=== PATIENT | male | born 1975 | race Caucasian/White ===

== ENCOUNTER 2025-05-12 17:56 | Inpatient (IN) | payer OTHER, SELFPAY ==
[2025-05-12] VITALS (11 sets, daily range): BP systolic 122–172; BP diastolic 84–133; BMI 25.5
--- NOTE | 2025-05-12 14:59 | ED.GENMED ---
History of Present Illness
General
Chief Complaint: Withdrawal Symptoms
Time Seen by Provider: 05/12/25 14:56
History of Present Illness
History of Present Illness:
FOCUSED PAST MEDICAL HISTORY
- Alcoholism
REVIEW OF OLD RECORDS
- I reviewed the discharge summary from October 2020 and at that time he was admitted overnight due to alcohol withdrawal symptoms but signed out the following day AGAINST MEDICAL ADVICE
Note:
CHIEF COMPLAINT(S)
Alcohol withdrawal symptoms, including visual hallucinations and tremors.
HISTORY OF PRESENT ILLNESS
The patient is a 49-year-old male with a known history of alcohol use disorder. The patient last consumed alcohol at around 5-6 AM today and reported experiencing withdrawal symptoms, which he described as the most intense he has ever faced. The
patient mentions consuming alcohol non-stop for the past seven weeks, with minimal food intake, stating, 'literally no food, literally, literally maybe a couple of times I take like some BCAAs with water or some electrolytes.' He reported visual
hallucinations, describing seeing cartoon characters on the wall, but did not experience auditory hallucinations. The patient has experienced a seizure related to alcohol withdrawal in the past, specifically in February 2022. He reported nausea, dry
heaving, and a sensation of pins and needles all over his body. Additionally, the patient reported increased severity of tinnitus in his left ear. The patient was observed to be sweating profusely and experiencing anxiety.
PAST MEDICAL AND SURGICAL HISTORY
- History of alcohol use disorder
- Past alcohol withdrawal seizures
ADDITIONAL HISTORY OBTAINED FROM SOURCES OTHER THAN THE PATIENT
According to previous records, the patient was treated for alcohol use in 2020, where he signed out against medical advice the following day.
CHRONIC MEDICAL CONDITIONS SIGNIFICANTLY AFFECTING CARE
- Alcohol use disorder
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
The patient is experiencing significant stress related to alcohol use. He lives alone and has a high level of anxiety about his condition, impacting his ability to maintain sobriety.
REVIEW OF SYSTEMS
- Neurological: Reports visual hallucinations of seeing cartoon characters, described pins and needles sensation, and history of tinnitus worsened by alcohol.
- Psychiatric: Anxiety and past alcohol withdrawal seizure reported.
- Gastrointestinal: Nausea, inability to ingest food, and dry heaving.
PHYSICAL EXAM
General: Alert, some acute distress noted due to tremors and withdrawal symptoms. CIWA score 26
Skin: Patient currently is not diaphoretic but states that he was 'drenched in sweat earlier'
Head: Normocephalic, atraumatic, though patient describes fullness due to tinnitus.
Neck: Supple, trachea midline.
Eye Ears, nose, mouth and throat: Moist oral mucosa
Cardiovascular: Elevated heart rate noted, normal peripheral perfusion, no edema.
Respiratory: Respirations are non-labored.
Gastrointestinal : Abdomen nondistended
Back: Normal range of motion, normal alignment.
Musculoskeletal: Tremors noted in hands.
Neurological: Alert and oriented to person, though some difficulty with direct questioning; visual hallucinations reported; no focal neurological deficit observed.
Psychiatric: Cooperative but anxious, reported experiencing severe withdrawal symptoms.
PROBLEM LIST
Acute Problems:
- Alcohol withdrawal syndrome with visual hallucinations
- Tremors associated with alcohol withdrawal
- Nausea and dry heaving
- Elevated heart rate
Chronic Problems:
- Alcohol use disorder
PLAN
The patient will receive treatment with diazepam (Valium) to manage withdrawal symptoms due to the high Clinical [place] Withdrawal Assessment for Alcohol (CIWA) score of 26. Admission to the hospital is considered due to the severity of symptoms,
including hallucinations. Further evaluation and monitoring for potential complications like seizures are planned.
DIFFERENTIAL DIAGNOSIS
The Differential Diagnosis includes, in no particular order and is not limited to:
- Alcohol withdrawal delirium
- Delirium tremens
- Alcohol-related hallucinations
- Anxiety disorder due to alcohol withdrawal
- Seizure activity related to alcohol withdrawal
- Hyponatremia
- Electrolyte imbalances due to inadequate nutrition
- Hyperadrenergic state due to alcohol withdrawal
- Metabolic acidosis due to prolonged alcohol use
SUMMARY OF ENCOUNTER
The patient, a 49-year-old male with a history of alcohol use disorder, was seen in the emergency department due to severe alcohol withdrawal symptoms, including visual hallucinations, tremors, and nausea. 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 He has been on a weeks-long alcohol binge with minimal food intake. He also reported visual hallucinations characterized by seeing cartoon
characters. An assessment showed a high Clinical [place] Withdrawal Assessment for Alcohol (CIWA) score of 26. Despite treatment with benzodiazepines (diazepam specifically), the patient remained tachycardic and experienced persistent nausea. Due
to the severity of symptoms, including the risk of complications such as seizures, admission to the hospital for further management was decided.
DISPOSITION
Admit.
ASSESSMENT
The patient is experiencing acute alcohol withdrawal syndrome manifesting as severe hallucinations, tremors, and nausea, with significant risk for potential complications such as seizures.
EMERGENCY TREATMENTS ADMINISTERED
Diazepam (Valium) was administered to manage withdrawal symptoms.
PLAN
The patient will be admitted to the hospital for further monitoring and treatment of acute alcohol withdrawal syndrome. The plan includes continued administration of diazepam as needed, monitoring for any further complications, and ensuring optimal
supportive care during withdrawal.
MEDICATION RECONCILIATION
Diazepam was administered to manage symptoms of alcohol withdrawal syndrome.
MEDICAL DECISION MAKING
- Complexity of Data Reviewed: Chronic conditions affecting care include alcohol use disorder and past alcohol withdrawal seizures. Differential diagnoses include alcohol withdrawal delirium, delirium tremens, alcohol-related hallucinations, anxiety
disorder due to alcohol withdrawal, seizure activity related to alcohol withdrawal, hyponatremia, electrolyte imbalances due to inadequate nutrition, hyperadrenergic state due to alcohol withdrawal, and metabolic acidosis due to prolonged alcohol
use.
- Data:
Category 2
- Clinical information was obtained from an independent historian: Previous records indicated prior treatment for alcohol use disorder with the patient signing out against medical advice the next day.
-Risk:
Prescription medication, specifically benzodiazepines, was employed to manage the patients withdrawal symptoms. Hospital admission was deemed necessary due to the complexity and potential risks associated with acute alcohol withdrawal.
DIAGNOSIS
Alcohol withdrawal syndrome with hallucinations (ICD-10: F10.232).
Severe alcohol use disorder (ICD-10: F10.20).
EKG
- Sinus 100, left axis deviation, incomplete right bundle branch block
LABS
- CBC unremarkable, of note MCV 89, sodium 134, bicarb 19, total bili 1.6, alcohol 210
Past History
Past History
ED Past Medical History: Psychiatric (chronic alcoholism), Other (Anal fistula) and Other (insomnia)
Social History
Tobacco: Non-smoker
Alcohol: Chronic alcoholic
Personal: Single
Phy Exam
Physical Exam
Physical Exam:
See HPI
Course
Orders/Labs/Results
Orders:
Orders
05/12/25 14:25
Electrocardiogram (*1) Urgent
Reason for Study: Palpitations
EKG- Treatment ONCE
05/12/25 14:47
Alcohol Urgent
Complete Blood Count/With Diff Urgent
Comprehensive Metabolic Panel Urgent
Lipase Urgent
Comment: ADD ON
05/12/25 15:00
0.9% Sodium Chloride 1000 ml [Nss] 1,000 ml IV BOLUS
diazePAM [Valium Injection] 10 mg IV NOW STA
05/12/25 15:01
Add On- LAB Urgent
Tests Added?: lipase
05/12/25 15:06
Ondansetron Injectable [Zofran] 4 mg .ROUTE .STK-MED ONE
05/12/25 15:11
Ondansetron Injectable [Zofran] 4 mg IV NOW STA
05/12/25 16:13
Ondansetron Injectable [Zofran] 4 mg IV NOW STA
05/12/25 17:12
Admit/Transfer Patient As Directed
Co-Sign Provider:
Level of Care: Inpatient admission
Assign to:: ICU
Physician / Group: Abran Blair
Diagnosis: alcohol withdrawal
Reason for Hospitalization: alcohol withdrawal
Expected length of stay greater than two midnights?: Yes
ELOS- Estimated Length of Stay in days: 3
I certify the patient meets the requirements for IP care: Yes
05/12/25 17:13
PRN Pain Medication Management As Directed
May give lesser potent ordered pain med per pt: Yes
preference::
Protocol:: Medication orders for pain may be administered in a
manner that supports deferring to patient preference
when the pt is:
- Requesting an ordered lesser potent pain medication.
Least to most potent pain medications are defined
as: acetaminophen < NSAID < tramadol < opioids
(morphine, oxycodone, hydromorphone).
- Requesting a lesser dose of the same medication IF
ORDERED.
- Requesting a less intrusive route of administration
if both routes are prescribed by the provider (PO <
IV).
05/12/25 17:42
ECG [Electrocardiogram (*1)] Stat
Reason for Study: Abdominal Pain
Other Reason for Exam: evaluate qtc
05/12/25 17:50
Code Status As Directed
Resuscitation Status: Full Code
Abnormal Lab Results
05/12/25
14:47
MCH 32.4 H pg
(27.0-31.0)
Monocytes % 10.4 H %
(1.7-9.3)
Sodium 134 L mmol/L
(135-145)
Carbon Dioxide 19 L mmol/L
(22-30)
BUN 8 L mg/dl
(9-20)
Glucose 112 H mg/dl
(70-99)
Total Bilirubin 1.6 H mg/dl
(0.2-1.3)
Total Protein 8.9 H g/dl
(6.3-8.2)
Albumin 5.4 H g/dl
(3.5-5.0)
05/12/25 14:47
05/12/25 14:47
Vital Signs
Initial and Last Documented VS:
Initial Vital Signs
Temp Pulse Resp BP Pulse Ox
37.2 C 117 22 172/133 96
05/12/25 14:22 05/12/25 14:22 05/12/25 14:22 05/12/25 14:22 05/12/25 14:22
Last Documented Vital Signs
Temp Pulse Resp BP Pulse Ox
37.2 C 89 22 148/96 96
05/12/25 14:22 05/12/25 17:00 05/12/25 14:22 05/12/25 17:00 05/12/25 17:00
*Pulse Oximetry
SaO2: 96
Patient hypoxic: no
*Critical Care Note
Total Time (30-74mins, 75-104mins- exclusive of procedures): Not Applicable
ED Attending Note
-
Portions of this chart may have been created with voice recognition software.� Occasional wrong word or��sound alike� substitutions may have occurred due to the inherent limitations of voice recognition software.
Discharge Plan
Departure
Patient Disposition: Admit
Date of Disposition: 05/12/25
Time of Disposition: 16:13
Presentation/result/management discussed w/ accepting MD/DO: Hospitalist
Discharge Problem:
Alcohol withdrawal delirium
Interventions
Interventions:
*Risk Screen - Suicide Last Done: 05/12/25 14:24
*General Assessment Last Done: 05/12/25 14:50
*Neglect/Abuse Screening Last Done: 05/12/25 14:24
*ED COVID-19 Vaccine History Last Done: 05/12/25 14:50
ED- Neurological Assessment Last Done: 05/12/25 14:50
ED-Psychological Assessment Last Done: 05/12/25 14:50
[2025-05-12 15:10] LABS: Hematocrit 46.0 % (39.0-52.0); Hemoglobin 16.7 g/dL (13.0-18.0); Mean Corp Hgb Conc. 36.3 g/dL (33.0-37.0); Mean Corpuscular Volume 89.3 fL (80.0-94.0); Nucleated Red Blood Cells % 0 % (-); Platelet Count 200 10^3/uL (130-400); Red Cell Dist. Width 12.7 % (11.5-14.5)
[2025-05-12] MEDS: NSS 1000 IV ×2 (15:10→20:44)
[2025-05-12] MEDS: VALIUM INJECTION 10 MG IV ×2 (15:10→18:59)
[2025-05-12] MEDS: ZOFRAN 4 MG IV ×2 (15:11→16:39)
[2025-05-12 15:12] LABS: ALT (SGPT) 48 U/L (0-50); AST (SGOT) 55 U/L (17-59); Albumin 5.4 g/dl (3.5-5.0); Alkaline Phosphatase 62 U/L (38-126); Blood Urea Nitrogen 8 mg/dl (9-20); Calcium 9.4 mg/dl (8.4-10.2); Carbon Dioxide 19 mmol/L (22-30); Chloride 100 mmol/L (98-107); Glucose 112 mg/dl (70-99); Potassium 4.8 mmol/L (3.5-5.1); Sodium 134 mmol/L (135-145); Total Protein 8.9 g/dl (6.3-8.2); eGFR > 60.00
[2025-05-12 16:00] LABS: Lipase 269 U/L (23-300)
--- NOTE | 2025-05-12 18:02 | W.PN.UPDATE ---
Update Note
Progress Note Update
49 male history of insomnia alcohol use disorder with relapsing-remitting alcoholism and known history of alcohol withdrawal seizures presents after 7 weeks of consistently drinking alcohol. States drinks to blackout as he has a history of insomnia
and since he was a child has not been able to sleep. His last drink was last night which was a beer and Omar wine. He blacked out around 8-9 PM. Woke up this morning with extreme nausea abdominal pain tremors. Had some beer which did not help
him and made him vomit even more.
On my exam he is tachycardic diaphoretic actively hallucinating. States he cannot stare at black screens or areas of darkness as he can see things. Things he can see or cartoon characters on the wall. At this time he is not agitated. He has not
been eating anything for the last 7 weeks and has only been drinking. Therefore at this time we will admit to ICU for severe alcohol use disorder with alcohol withdrawal and concern for delirium tremens.
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
MSAS
Phenobarb taper
Thiamine
Folate
Dextrose containing fluids
Maalox
PPI IV
Antiemetics
EKG for QTc
Metabolic acidosis -anion gap(15)/osmolar gap high (323-334)
Likely related to ethanol toxicity though without evidence of ketosis.
Provide IV fluids
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
Hyperbilirubinemia mild
Check direct
Fortunately AST/ALT ALP within normal limit
--- NOTE | 2025-05-12 18:04 | HPS.HSE ---
Addendum entered and electronically signed by Abran Blair MD 05/13/25 10:11:
see update note
Original Note:
Family Physician
-
Family Physician: * NONE
Chief Complaint
-
alcohol withdrawal
History of Present Illness
49yoM PMH AUD relapsing/remitting every couple years presenting from acute relapse 7 weeks of alcohol use after 2 years of sobriety with withdraw:tremors, visual hallucinations, abdominal pain, emesis.
Last drink was last night when he tried to self wean off alcohol when he began having visual hallucinations, he describes as seeing a movie screen on the wall in front of him. Pt reports staying up all night, beginning to have 'the shakes' in the
morning when he tried to drink some beer and began uncontrollably vomiting. He has self weaned off alcohol in the past. He reports feeling worse this time with no hallucinations before. After his last withdrawal with a seizure, he went to rehab in
[place] where he also spends time living.
Pt describes his usual state of health between relapses with no pertinent PMH. He does not take any medications at home beyond a multivitamin when he is not consuming alcohol. Recently quit his job during this episode. Reached out to family for
support.
Pt is urinating appropriately with diarrhea for the last few weeks. He explains that he has had no real food and has had persistent diarrhea for weeks. Reports stomach pain, severe tinnitis elevated from baseline, and continued hallucination while
in the room.
Medical History
Past Medical History
Past Medical History: Reports Psychiatric (AUD) and Other (anal fissure, tinnitus at baseline)
Past Surgical History: Reports Orthopedic (shoulder surgery in [facility])
Social History
Tobacco: Non-smoker
Alcohol: Chronic Alcoholic
Drug: None
Living: Alone
Family History
Family History: Not pertinent
Allergies / Home Medications
Allergies reflects when Allergies were last updated in [employer].
Home Medications with original date entered in [employer]
Allergy/Medication List:
NKDA
Review of Systems
-
History Source: Patient
A 12 point ROS was completed and negative except as noted: Yes
Constitutional: Reports Fatigue, Sleep Disturbance and Night Sweats
EENT: Reports Tearing; Denies Sore Throat
Respiratory: Denies Cough or Trouble Breathing
Cardiac: Reports Diaphoresis and Palpitations; Denies Chest Pain
Abdomen/GI: Reports Abdominal Pain, Nausea, Vomiting, Diarrhea and Anorexia
: Denies Dysuria
Neurological: Reports Other (visual hallucinations, tremor)
Psych: Reports Anxiety and Audio or Visual Hallucinations
Physical Exam
Vital Signs
Vital Signs
Temp Pulse Resp BP Pulse Ox
98.9 F 89 22 148/96 96
05/12/25 14:22 05/12/25 17:00 05/12/25 14:22 05/12/25 17:00 05/12/25 17:00
Physical Exam
General: Well Developed, Well Nourished, No Apparent Distress, Comfortable and Conversant
HEENT: NormoCephalic, Anicteric, Moist mucous membranes, Atraumatic, Good Dentition, [place] Conjunctivae, Nose Appears Normal and Ears Appear Normal
Respiratory: Clear and Non Labored Respirations
Cardiac: S1/S2 and Regular Rhythm
GI: Soft, Non Distended and Tender (no guarding or rebound)
Genito-urinary: Deferred by me
Musculoskeletal: No Edema
Skin: Warm and Dry
Neuro: AO x 3, No Motor Deficits, Nonfocal/grossly intact and Tremors
Psych: Calm, Intact Judgment/Insight and Depressed
Laboratory Results
-
05/12/25 14:47
05/12/25 14:47
Laboratory Results
Total Bilirubin 1.6 mg/dl (0.2-1.3) H 05/12/25 14:47
AST 55 U/L (17-59) 05/12/25 14:47
ALT 48 U/L (0-50) 05/12/25 14:47
Alkaline Phosphatase 62 U/L (38-126) 05/12/25 14:47
Lipase 269 U/L (23-300) 05/12/25 14:47
Impression/Plan
-
IMPRESSION:
49yoM PMH AUD with relapse-remitting alcohol use and known alcohol withdrawal seizures presenting from 7 week binge drinking episode with withdrawal.
Pt reports last alcohol last night with attempt this morning with instant emesis, severe withdrawal. Pt hallucinating while in the room, otherwise calm, diaphoretic. Emesis last this morning, continued diarrhea. AFVSS. ECG normal QTc 460. K 4.8. Na
134. Co2 19.
PLAN:
#Alcohol withdrawal
- Admit to ICU. Severe withdrawal
- MSAS
- Phenobarb taper
- Thiamine, folate
- Dextrose containing fluids
- IV PPI
- Antiemetics.
<del>-</del> EKG to evaluate QTc
-Psych consult
#Metabolic acidosis
- IVF, monitor for acute changes
- Serum osm
#hyperbilirubinemia
- Monitor in setting of acute alcohol use
- Stable AST/ALT/ ALP
[2025-05-12] MEDS: PHENOBARBITAL 104 MG IV (20:36)
[2025-05-12] MEDS: PROTONIX IV 40 MG IV (20:43)
[2025-05-12] MEDS: NSS (PRESERVATIVE FREE) 10 ML IV (20:43)
[2025-05-12] MEDS: THIAMINE INJECTION 200 MG IV (20:44)
[2025-05-12 21:09] LABS: GGTP 45 U/L (15-73); Magnesium 1.9 mg/dl (1.6-2.3)
[2025-05-12 21:57] LABS: Glucose - Point of Care 107 mg/dl (70-99)
[2025-05-12] MEDS: VALIUM INJECTION 5 MG IV (22:06)
--- NOTE | 2025-05-12 22:13 | PTCARENOTE ---
Patient received from ED RN via stretcher. AAOx4 and able to make his needs known. Patient transferred from the stretcher to the bed by sliding over. Patient verbalizes dizziness with movement, especially when standing up. MARCO ANTONIO x4. MSAS of 6 on
arrival. Verbalizes that the television standstill image is moving side to side. Plan of care for the shift reviewed with the patient. Sinus rhythm on the monitor. Breath sounds are cta. Right AC 20 gauge is patent with no blood return. Assisted the
patient to sit at the side of the bed to urinate. Pt tolerated, but was unable to void. Scheduled medications administered. Pt vocalized concern regarding having tremors, and being unable to sleep fue to his withdrawal. Discussed protocol with the
patient. Valium administered for MSAS of 10.
[2025-05-12 23:35] LABS: Urine Character Clear (Clear)
[2025-05-12 23:47] LABS: APTT 24.1 Sec (23.4-35.0); INR 1.04; PT 13.9 Sec (11.4-14.6)
[2025-05-13] VITALS (20 sets, daily range): BP systolic 119–153; BP diastolic 77–95; BMI 25.7
[2025-05-13 00:01] LABS: Urine Red Blood Cell 0-2 /HPF (0-2); Urine Squamous Cell 0-2 /LPF (Few); Urine White Cell 0-2 /HPF (0-5)
--- NOTE | 2025-05-13 00:59 | PTCARENOTE ---
Patient reassessed. Awake and oriented x4. Verbalizes anxiousness but otherwise calm. Sinus rhythm on the monitor. Gracy giuliano and crackers provided. No changes from the previous assessment.
[2025-05-13 04:50] LABS: Blood Urea Nitrogen 10 mg/dl (9-20); Calcium 8.8 mg/dl (8.4-10.2); Carbon Dioxide 25 mmol/L (22-30); Chloride 104 mmol/L (98-107); Estimated Creatinine Clearance 118 ml/min; Glucose 85 mg/dl (70-99); Magnesium 2.1 mg/dl (1.6-2.3); Potassium 4.2 mmol/L (3.5-5.1); Sodium 136 mmol/L (135-145); eGFR > 60.00
--- NOTE | 2025-05-13 04:51 | PTCARENOTE ---
Patient reassessed. No changes from the previous assessment.
[2025-05-13 05:38] LABS: Hematocrit 42.9 % (39.0-52.0); Hemoglobin 15.3 g/dL (13.0-18.0); Mean Corp Hgb Conc. 35.7 g/dL (33.0-37.0); Mean Corpuscular Volume 92.3 fL (80.0-94.0); Platelet Count 138 10^3/uL (130-400); Red Cell Dist. Width 13.0 % (11.5-14.5)
--- NOTE | 2025-05-13 06:54 | W.PN.HOSP.TC ---
Addendum entered and electronically signed by Abran Blair MD 05/13/25 13:37:
49 male history of insomnia alcohol use disorder with relapsing-remitting alcoholism and known history of alcohol withdrawal seizures presents after 7 weeks of consistently drinking alcohol. States drinks to blackout as he has a history of insomnia
and since he was a child has not been able to sleep. His last drink was last night which was a beer and Omar wine. He blacked out around 8-9 PM. Woke up this morning with extreme nausea abdominal pain tremors. Had some beer which did not help
him and made him vomit even more.
On my exam he is tachycardic diaphoretic actively hallucinating. States he cannot stare at black screens or areas of darkness as he can see things. Things he can see or cartoon characters on the wall. At this time he is not agitated. He has not
been eating anything for the last 7 weeks and has only been drinking. Therefore at this time we will admit to ICU for severe alcohol use disorder with alcohol withdrawal and concern for delirium tremens.
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
MSAS
Phenobarb taper
Thiamine
Folate
Dextrose containing fluids
Maalox
PPI IV
Antiemetics
EKG for QTc
Metabolic acidosis -anion gap(15)/osmolar gap high (323-334)
Likely related to ethanol toxicity though without evidence of ketosis.
Provide IV fluids
Obtain serum osm though will not tire changer
Hyperbilirubinemia mild
Check direct
Fortunately AST/ALT ALP within normal limit
Downgrade to GMF
Original Note:
Today's Communication/Plan
-
Plan reviewed with attending.
visual hallucinations subsided. MSAS 1.
Downgrade.
Continue to monitor withdrawal symptoms.
Assessment / Plan
Assessment / Plan
IMPRESSION:
49yoM PMH AUD with relapse-remitting alcohol use and known alcohol withdrawal seizures presenting from 7 week binge drinking episode with withdrawal.
Pt reports last alcohol night of 05/11 presenting with severe withdrawal symptoms of hallucinations, tremors, emesis, diarrhea. Most of his symptoms have resolved with continued diarrhea. AFVSS. Electrolytes and LFTs WNL.
Pt reports having success outpt with naltrexone for alcohol cravings. He stopped the shots since they caused soreness. Seems interested in pursuing again out pt.
PLAN:
#Alcohol withdrawal
- Severe withdrawal subsided. Downgrade
- Continue MSAS protocol
- Continue Phenobarb taper
- Continue Thiamine, folate
- Continue Dextrose containing fluids. Encourage PO intake as long as he does not have nausea
- IV PPI
- Antiemetics.
<del>-</del> EKG stable
-Psych consult appreciated
#Metabolic acidosis
- IVF, monitor for acute changes
- Serum osm elevated. Acidosis resolved
#hyperbilirubinemia
- Monitor in setting of acute alcohol use. resolved
- Stable AST/ALT/ ALP
Anticipated Discharge: 24 - 48 hours
Subjective/Interval History
-
Date of Service: May 13, 2025
Today, pt reports feeling slightly better with diffuse weakness after getting some sleep. Pt reports resolved visual hallucinations and improving abdominal pain. He reports lower abdominal sharp pains intermittently with continued diarrhea. Denies
nausea or vomiting.
He had a presyncopal episode overnight where he stood up to use the restroom and got lightheaded. He reports instantly resolved symptoms. Denies lightheaded this morning.
Objective Data
-
Labs:
Laboratory Results
05/12/25 05/13/25
23: 04:00
WBC 4.5 L
Hgb 15.3
Hct 42.9
Plt Count 138 D
PT 13.9
INR 1.04
APTT 24.1
Sodium 136
Potassium 4.2
Chloride 104
Carbon Dioxide 25
BUN 10
Creatinine 0.9
Glucose 85
Calcium 8.8
Vital Signs:
Vital Signs
Temp Pulse Resp BP Pulse Ox
98.2 F 67 17 129/80 94
05/13/25 06:02 05/13/25 02:45 05/13/25 02:45 05/13/25 02:00 05/13/25 02:45
I&O
05/11/25 05/12/25 05/13/25
06:59 06:59 06:59
Intake Total 0 / 1859
Output Total 1045 / 1045
Balance 815 / 815
Physical Exam
-
General: Well Developed, Well Nourished, No Apparent Distress and Comfortable
HEENT: Normocephalic, Atraumatic, Moist Mucous Membranes and Anicteric
Respiratory: Clear to Auscultation, Wheezes and Non Labored Respirations
Cardiac: Regular Rhythm and S1/S2
GI: Soft, Nontender and Nondistended
Musculoskeletal: No Edema
Skin: Warm and Dry
Neuro: Awake, AO x 3, No Motor Deficits and Nonfocal/Grossly Intact; Negative Slurred Speech
Psych: Calm
--- NOTE | 2025-05-13 08:25 | CON.INTV ---
Consultation
Consultation Request
Date/Time Consultation Requested: 05/12/25, 18:04
Date/Time Consultation Performed: 05/13/25, 8:30am
Medical History
-
Chief Complaint: alcohol withdrawal delirium
History of Present Illness:
Patient is a 49yo M with a pmh notable for relapsing/remitting AUD who presented on 05/12 following acute relapse s/p 2 yrs sobriety, experiencing sx of withdrawal.
Pt had been sober for 2 yrs until recent 7-week relapse of alcohol use (says 'drinking all day every day', mostly beers/anoop; unable to quantify amount). Night prior to admission, pt tried to stop drinking (last drink was a beer and Omar wine
around 5pm 05/11). On 05/12, began having visual hallucinations, tremors, abdominal pain. Episodes of emesis after attempting to drink a beer to calm sx. Has hx of seizure following prior withdrawal episodes. Also describes multiple weeks of
persistent diarrhea with poor PO intake. Endorses stomach pain, tinnitus (mild at baseline). Without additional medical hx, no home meds aside from multivitamin.
On presentation: CIWA score 26 in the ED. BP 172/133. Afebrile. HR 117. RR 22. ECG normal QTc 460. K 4.8. Na 134. Co2 19. BAL 210. Patient was admitted to ICU, started on phenobarb taper, diazepam/lorazepam per MSAS protocol, folate, thiamine.
This am, still endorsing visual hallucinations (crowd of people in TV screen reflection, warped texture on wall). Says he feels he could try eating something light. Denies outright nausea but 'could throw up.' Says he had a BM last night that was
uncomfortable, constipation that turned into diarrhea. Would like to go to a rehab facility prior to going home.
Past Medical History
Past Medical History: Other (AUD w prior relapses involving seizures )
Past Surgical History: None
Social History
Alcohol: Other (AUD)
Drug: Marijuana
Living: Alone
Employment: Not Employed
Family History
Family History: Reviewed & Not Pertinent
Allergies / Home Medications
Allergies
Allergy/AdvReac Type Severity Reaction Status Date / Time
No Known Allergies Allergy Verified 11/03/20 12:22
Home Medications
�Medication �Instructions �Recorded �Confirmed �Last Taken �Type
No Meds [No Current Medications] 05/12/25 05/12/25 Unknown History
Review of Systems
-
History Source: Patient
All other systems: Unreviewed (per HPI)
Vitals / Labs / Diagnostic Testing
Vital Signs
Temp Pulse Resp BP Pulse Ox
98.2 F 67 17 129/80 94
05/13/25 07:27 05/13/25 02:45 05/13/25 02:45 05/13/25 02:00 05/13/25 02:45
Lab Data
05/13/25 04:00
05/13/25 04:00
Laboratory Results
05/12/25
23:21
PT 13.9
INR 1.04
APTT 24.1
Diagnostic Testing:
Physical Exam
-
HEENT: Normocephalic and Anicteric
Cardiovascular: S1/S2 and Regular Rhythm
Respiratory: Non-Labored Respirations
Neurology: Awake, Alert, Oriented and Other (no tremors on upper extremities )
Skin: Warm, Dry and Good Color
General: Comfortable and Other (appears calm, comfortable )
Assessment
-
Patient is a 49yo M with a pmh notable for relapsing/remitting AUD who presented on 05/12 following acute relapse s/p 2 yrs sobriety, experiencing sx of withdrawal.
#Alcohol withdrawal
#C/f delirium tremens
#Metabolic acidosis
Pt with K, Mg, P wnl but with shaking, active visual hallucinations, emesis, poor PO intake (hypovolemia), metabolic acidosis, hx of seizures from withdrawal. S/p 7 week alcohol binge. Blood alcohol level 210 on admission.
This am, AVSS. Glucose 107. Endorses ongoing visual hallucinations (warped texture of wall, seeing group of people in TV reflection). However, calm, no shakiness or palpitations. Moderate appetite. S/p 25mg diazepam on 05/12 & phenobarb. QTc 439 ms.
Per RN, MSAS 0-2 this am. No seizures overnight.
- Discotinue MSAS protocol
- Continue phenobarb taper
- Add 10mg diazepam q4h PRN for breakthrough sx
- Continue thiamine & folate repletion
- IVF NSS - finish 6pm today
- PRN zofran
- Monitor CMP
- Psych consulted, appreciate recs - pt wants rehab
#Global
- Diet: regular, as tolerated
- GI ppx: stop PPI today
- DVT ppx: lovenox
- Code: full
- Dispo: downgrade today, likely to floors
Data Reviewed
-
EKG: Report reviewed by me
Labs: Labs reviewed by me
Critical Care Time (in minutes): 35
Total Time Spent with Patient (in minutes): 15
[2025-05-13] MEDS: FOLVITE 1 MG PO (08:44)
[2025-05-13] MEDS: PROTONIX IV 40 MG IV (08:44)
[2025-05-13] MEDS: NSS 1000 IV (08:44)
[2025-05-13] MEDS: NSS (PRESERVATIVE FREE) 10 ML IV (08:44)
[2025-05-13] MEDS: THIAMINE INJECTION 200 MG IV ×2 (08:45→20:26)
[2025-05-13] MEDS: PHENOBARBITAL 97.5 MG IV ×3 (08:45→21:42)
--- NOTE | 2025-05-13 09:00 | PTCARENOTE ---
Rec'd pt at 0730 awake alert and oriented resting in bed. States he feels much better. States now that it is daylight the hallucinations of the TV screen and things moving are gone. Denies dizziness or headache. No tremors or seizure activity noted.
BERNARD. Speech is clear and conversation is appropriate. MSAS is currently a 0. Admits to some intermittent lower abd sharp discomfort that he mostly noted with urinating although has been able to urinate. Skin is pink wm and dry. Respirs are
unlabored on RA with sats of 97%. BS are clear. Monitor SR with BB config. + pulses. No edema. Abd is soft- non-tender to palp with + BS. Denies nausea but states he has not had much of an appetite but thinks he could try to eat something this
morning. Did feel like he has to move his bowels and admits to some diarrhea at home. Voiding tea colored urine. Assisted oob to the toilet for per pt liquid brown stool x2 times. Gait intially unsteady when he first stool up but corrected quickly
and gait after was steady with no dizziness. Stood at the sink and did oral care and own CHG bath. IV NSS infusing at 100 ml/hr via R hand IV site. Capped int intact RAC. Plan of care reviewed with pt and call leggett in reach. Pt made aware that he
need to ring if he wants to get up- verbalized understanding.
--- NOTE | 2025-05-13 10:10 | PTCARENOTE ---
Pt at some toast and 1/2 fruit cup for breakfast but then stated his stomach felt queezy after. No vomiting. No hallucinations and no tremors currently. Psych in to see pt currently.
--- NOTE | 2025-05-13 12:30 | PTCARENOTE ---
Assessment is unchanged. ANNETTE is a 1. Pts mother in visiting. No complaints currently. Voided 400 mls in the urinal and urine was a much home health provider tea colored. States he felt better after having a more substantial void. Call leggett in reach.
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
--- NOTE | 2025-05-13 14:15 | PTCARENOTE ---
Tolerated broth and crackers with no c/o nausea. Pt did relate that he had a brief episode of shaking and anxiousness when he opened up a can of gingerale- said the sound reminded him of opening a beer can and briefly made him anxious but states -
he worked through it and is ok now. He did not ring his call leggett at the time and states he is comfortable now. No tremors noted and MSAS is a 1.
--- NOTE | 2025-05-13 14:23 | CM ---
Addendum entered by Zofia Morris 05/13/25 15:51:
Yomaira at [facility] notified. She will try to visit this evening.
Original Note:
Initial assessment completed with mother. Patient lives alone in a 3rd floor apartment with no elevator (since November), 1 step to enter. 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 Went to [employer] in [place]. No DME. No in-home services. He has had in-patient [facility] rehab in [place] and [facility]. No PCP. Discharge POC: Anticipate home with no needs unless [facility] can have patient agree to inpatient SA rehab.
--- NOTE | 2025-05-13 16:00 | PTCARENOTE ---
Pt had been dozing- once awake he did admit that looking at the brick wall outside his room window he sees the bricks moving along with the print design on the sofa in the room. States he knows they are not but that is what he is seeing. Does not
see any additional figures in his room or in the TV which is off like last night. MSAS is a 2. Phenobarb given as ordered. Pt for transfer to 322. No other changes.
[2025-05-13] MEDS: FLUSH (NSS) 1 FLUSH IV (16:15)
--- NOTE | 2025-05-13 17:00 | PTCARENOTE ---
Report called to [facility] and pt transferred via wheelchair up to new room. Cooperative. Gait steady getting oob. Denies dizziness. No tremors noted. Prior to transfer IV fluids capped per MD order. No other changes.
[2025-05-13] MEDS: NSS IV (17:30)
--- NOTE | 2025-05-13 17:30 | PTCARENOTE ---
Pt received from ICU via wheelchair accompanied by ICU Nurse. Pt ambulated from wheelchair to recliner with steady gait. Pt introduced to staff, call light and environment. Chair alarmed and audible. All personal items and call light within
reach.
[2025-05-13] MEDS: LOVENOX 40 MG SC (17:50)
[2025-05-13] MEDS: ATARAX 50 MG PO (21:41)
[2025-05-14 04:40] VITALS: BP 118/73
--- NOTE | 2025-05-14 07:13 | W.PN.HOSP.TC ---
Addendum entered and electronically signed by Abran Blair MD 05/14/25 13:26:
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
MSAS
Phenobarb taper
Thiamine
Folate
Dextrose containing fluids
Maalox
PPI IV
Antiemetics
Metabolic acidosis -anion gap(15)/osmolar gap high (323-334)
Likely related to ethanol toxicity though without evidence of ketosis.
Provide IV fluids
Obtain serum osm though will not climate change risk assessor
Original Note:
Today's Communication/Plan
-
Plan reviewed with attending.
Continue MSAS protocol. Phenobarb taper, thiamine, folate.
Appreciate psychiatry recommendations. Plan to start naltrexone before discharge.
Assessment / Plan
Assessment / Plan
IMPRESSION:
49yoM PMH AUD with relapse-remitting alcohol use and known alcohol withdrawal seizures presenting from 7 week binge drinking episode with withdrawal.
Pt reports last alcohol night of 05/11 presenting with severe withdrawal symptoms of hallucinations, tremors, emesis, diarrhea. Most of his symptoms have resolved with continued diarrhea. AFVSS. Electrolytes and LFTs WNL.
Pt reports having success outpt with naltrexone for alcohol cravings. He stopped the shots since they caused soreness. Seems interested in pursuing again out pt.
Today, pt is reporting profuse sweating but resolution of hallucinations, vomiting, and diarrhea. telegraph office manager has been in contact with rehab facilities. Psych recommends considering starting naltrexone before discharge.
PLAN:
#Alcohol withdrawal
- Severe withdrawal subsided. Downgraded.
- Continue MSAS protocol
- Continue Phenobarb taper
- Continue Thiamine, folate
- Continue encouraging PO intake as long as he does not have nausea
- IV PPI
- Antiemetics.
<del>-</del> EKG stable
-Psych consult appreciated
#Metabolic acidosis
- IVF, monitor for acute changes
- Serum osm elevated. Acidosis resolved
#hyperbilirubinemia
- Monitor in setting of acute alcohol use. resolved
- Stable AST/ALT/ ALP
#moderate protein calorie malnutrition
- Weight loss during last 7 weeks of binge drinking. Nutrition per RD appreciated.
DVT prophylaxis: lovenox
Diet: normal
Dispotion: rehab
Anticipated Discharge: Within 24 hours
Subjective/Interval History
-
Date of Service: May 14, 2025
Today, pt reports profuse sweating and chills. Scoring 2 or lower on MSAS. Pt had second bout of lightheadedness walking to the restroom yesterday with resolution after drinking some water and sleeping. Denies visual hallucinations, nausea,
vomiting, blurry vision, headaches. He reports continued stomach cramping feeling.
He stated he talked to rehab facility already and has had family visiting. He expressed interest in restarting naltrexone.
Objective Data
-
Labs:
Laboratory Results
05/14/25
06:33
WBC 2.9 L
Hgb 14.4
Hct 41.1
Plt Count 100 L D
Sodium 139
Potassium 3.8
Chloride 103
Carbon Dioxide 29
BUN 8 L
Creatinine 0.9
Glucose 100 H
Calcium 9.5
Total Bilirubin 1.5 H
AST 70 H
ALT 67 H
Alkaline Phosphatase 46
Vital Signs:
Vital Signs
Temp Pulse Resp BP Pulse Ox
97.8 F 80 18 138/97 100
05/14/25 07:30 05/14/25 07:30 05/14/25 07:30 05/14/25 07:30 05/14/25 07:30
I&O
05/13/25 05/14/25 05/15/25
06:59 06:59 06:59
Intake Total 1859 / 1959 3659 / 3660
Output Total 1045 / 1045 2375 / 2375
Balance 815 / 915 1285 / 1285
Physical Exam
-
General: Well Developed, Well Nourished, No Apparent Distress, Comfortable and Sweats
HEENT: Normocephalic, Atraumatic, Moist Mucous Membranes and Anicteric
Respiratory: Clear to Auscultation and Non Labored Respirations
Cardiac: Regular Rhythm and S1/S2
GI: Soft, Nontender and Nondistended
Musculoskeletal: No Edema
Skin: Warm; Negative Dry (diaphoretic)
Neuro: AO x 3, No Motor Deficits and Nonfocal/Grossly Intact
Psych: Calm
[2025-05-14 07:27] LABS: ALT (SGPT) 67 U/L (0-50); AST (SGOT) 70 U/L (17-59); Albumin 4.2 g/dl (3.5-5.0); Alkaline Phosphatase 46 U/L (38-126); Blood Urea Nitrogen 8 mg/dl (9-20); Calcium 9.5 mg/dl (8.4-10.2); Carbon Dioxide 29 mmol/L (22-30); Chloride 103 mmol/L (98-107); Estimated Creatinine Clearance 118 ml/min; Glucose 100 mg/dl (70-99); Potassium 3.8 mmol/L (3.5-5.1); Sodium 139 mmol/L (135-145); Total Protein 7.2 g/dl (6.3-8.2); eGFR > 60.00
[2025-05-14 07:30] VITALS: BP 138/97
[2025-05-14 07:34] LABS: Hematocrit 41.1 % (39.0-52.0); Hemoglobin 14.4 g/dL (13.0-18.0); Mean Corp Hgb Conc. 35.0 g/dL (33.0-37.0); Mean Corpuscular Volume 94.7 fL (80.0-94.0); Platelet Count 100 10^3/uL (130-400); Red Cell Dist. Width 12.8 % (11.5-14.5)
[2025-05-14] MEDS: PHENOBARBITAL 97.5 MG IV ×3 (07:45→21:02)
[2025-05-14] MEDS: FOLVITE 1 MG PO (07:45)
[2025-05-14] MEDS: THIAMINE INJECTION 200 MG IV ×2 (07:46→19:48)
--- NOTE | 2025-05-14 09:40 | CM ---
[facility] and he will be in to se patient today. Patient last night, was agreeable to inpatient at [facility] once he is completed detox. Gerard will follow up with CM today re
anticipated d/c date.
--- NOTE | 2025-05-14 10:42 | PN.CDI ---
CDI
- -
CDI:
Physician Documentation Request
Admit Date: 05/12/25 17:56
Dear Doctor Cresencio,
Clinical Indicators:
Patient admitted with alcohol withdrawal.
05/12 H & P, ' He explains that he has had no real food and has had persistent diarrhea for weeks.'
05/13 note/assessment:-'Compared to reported UBW of 218 lbs pt with a 19 lb (8%) weight loss in two months,
significant.'
-'With weight loss of > 7.5% in 3 months and < 75% estimated needs > 1 month pt
meets AND/ASPEN criteria for moderate protein calorie malnutrition of chronic
illness.'
Based on the above information and your assessment, which of the following most accurately represents the patient's nutritional status?
Moderate Protein Calorie Malnutrition
Other (please specify)
Stambaugh Criteria ([facility] Hospitalist 2017)
2 or more criteria must be present for either
non severe or severe malnutrition
Note that the criteria differs related to the
presence of an acute or chronic illness
Chronic Illness
Energy Intake Non Severe: <75% for >1 month
Severe: <75% for >1 month
Weight Loss Non Severe: 5% over 1 month
7.5% over 3 months
10% over 6 months
20% over 1 year
Severe: >5% over 1 month
>7.5% over 3 months
>10% over 6 months
>20% over 1 year
Body Fat Non Severe: Mild Loss
Severe: Severe Loss
Muscle Mass Non Severe: Mild Loss
Severe: Severe Loss
Fluid Accumulation Non Severe: Mild Accumulation
Severe: Moderate to severe
accumulation
Reduced Batch And Furnace Manager Strength Non Severe: N/A
Severe: Measurably reduced
Additional criteria that can be used to Determine if Mild or Moderate Malnutrition (Merck Manual 2018)
Mild Moderate Severe
Albumin gm/dl <3.0 gm/dl <2.5 gm/dl <2.0 gm/dl
Pre Albumin mg/dl <15 gm/dl <10 mg/dl <5.0 mg/dl
BMI <18.5 <17 <16
Use of terms such as suspected, likely, concern for, or probable (associated with a specific diagnosis that is being evaluated, monitored, or treated as if it exists) are acceptable and can be coded in the inpatient setting, when documented at the
time of discharge.
Thank you,
Praveena Saenz RN
CDI Specialist
available via tiger text
Please use your independent medical judgment in providing your response.
[2025-05-14 11:15] VITALS: BP 150/91
[2025-05-14 16:00] VITALS: BP 131/81
--- NOTE | 2025-05-14 17:22 | W.PN.UPDATE ---
Update Note
Progress Note Update
pt seen for followup. says he is toughing it out, 'this isn't my first rodeo' looking forward to going to rehab after this, though does not feel well enough yet. had good conversation with [facility] folks, feels it is going to work out. hoping to go to
sober living facility afterwards. continue detox here, plan to go to rehab
[2025-05-14] MEDS: LOVENOX 40 MG SC (17:29)
[2025-05-14] MEDS: ATARAX 50 MG PO (21:02)
[2025-05-14 23:00] VITALS: BP 146/98
[2025-05-15 07:00] VITALS: BP 133/89
[2025-05-15 07:17] LABS: Hematocrit 41.9 % (39.0-52.0); Hemoglobin 14.6 g/dL (13.0-18.0); Mean Corp Hgb Conc. 34.8 g/dL (33.0-37.0); Mean Corpuscular Volume 93.3 fL (80.0-94.0); Platelet Count 111 10^3/uL (130-400); Red Cell Dist. Width 12.7 % (11.5-14.5)
--- NOTE | 2025-05-15 07:18 | W.PN.HOSP.TC ---
Addendum entered and electronically signed by Abran Blair MD 05/15/25 13:42:
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
MSAS
Phenobarb taper
Thiamine
Folate
Dextrose containing fluids
Maalox
PPI IV transition to oral
Antiemetics
Interested in [facility] inpatient, has question for liaison, awaiting to hear back
May need to complete phenobarb taper here
Original Note:
Today's Communication/Plan
-
Plan reviewed with attending
Inpt rehab per CM.
Continue phenobarbital taper
Begin naltrexone
Assessment / Plan
Assessment / Plan
IMPRESSION:
49yoM PMH AUD with relapse-remitting alcohol use and known alcohol withdrawal seizures presenting from 7 week binge drinking episode with withdrawal.
Pt reports last alcohol night of 05/11 presenting with severe withdrawal symptoms of hallucinations, tremors, emesis, diarrhea. Most of his symptoms have resolved with continued diarrhea. AFVSS. Electrolytes and LFTs WNL.
Pt reports having success outpt with naltrexone for alcohol cravings. He stopped the shots since they caused soreness. Seems interested in pursuing again out pt.
Today, pt is feeling better. records analysis manager has been in contact with rehab facilities. Pt prefers inpt rehab vs intensive outpt. Psych recommends considering starting naltrexone before discharge, pt amenable and appreciative. Pt did not realize
vivitrol came in a PO version and is eager to begin due to the success last time he used it.
Pt requested ENT consult for chronic tinnitus he has had for 2 years. We discussed the acuity of the problem will best be addressed outpt.
PLAN:
#Alcohol withdrawal
- Severe withdrawal subsided. Downgraded.
- Continue MSAS protocol
- Continue Phenobarb taper
- Continue Thiamine, folate
- Continue encouraging PO intake
- IV PPI
- Antiemetics.
<del>-</del> EKG stable
-Psych consult appreciated
- Start naltrexone today
#Metabolic acidosis
- IVF, monitor for acute changes
- Serum osm elevated. Acidosis resolved
#hyperbilirubinemia
- Monitor in setting of acute alcohol use. resolved
- Stable AST/ALT/ ALP
#moderate protein calorie malnutrition
- Weight loss during last 7 weeks of binge drinking. Nutrition per RD appreciated.
DVT prophylaxis: lovenox
Diet: normal
Dispotion: rehab
Anticipated Discharge: 24 - 48 hours
Subjective/Interval History
-
Date of Service: May 15, 2025
Pt denies pain, nausea, vomiting. With phenobarbital he reports mild sedation. He reports continued baseline tinnitus.
Objective Data
-
Labs:
Laboratory Results
05/15/25
06:30
WBC 3.1 L
Hgb 14.6
Hct 41.9
Plt Count 111 L
Sodium Pending
Potassium Pending
Chloride Pending
Carbon Dioxide Pending
BUN Pending
Creatinine Pending
Glucose Pending
Calcium Pending
Vital Signs:
Vital Signs
Temp Pulse Resp BP Pulse Ox
98.6 F 86 16 146/98 99
05/14/25 23:00 05/14/25 23:00 05/14/25 23:00 05/14/25 23:00 05/14/25 23:00
I&O
05/14/25 05/15/25 05/16/25
06:59 06:59 06:59
Intake Total 3660 / 3660 1919
Output Total 2375 / 2375
Balance 1285 / 1285 1919
Physical Exam
-
General: Well Developed, Well Nourished, No Apparent Distress and Comfortable
HEENT: Normocephalic, Atraumatic and Moist Mucous Membranes
Respiratory: Clear to Auscultation
Cardiac: Regular Rhythm and S1/S2
GI: Soft and Nontender
Musculoskeletal: No Edema
Skin: Warm and Dry
Neuro: AO x 3, No Motor Deficits and Nonfocal/Grossly Intact
Psych: Calm
[2025-05-15 07:28] LABS: Blood Urea Nitrogen 9 mg/dl (9-20); Calcium 9.2 mg/dl (8.4-10.2); Carbon Dioxide 27 mmol/L (22-30); Chloride 103 mmol/L (98-107); Estimated Creatinine Clearance > 125 ml/min; Glucose 64 mg/dl (70-99); Potassium 3.9 mmol/L (3.5-5.1); Sodium 138 mmol/L (135-145); eGFR > 60.00
[2025-05-15] MEDS: FOLVITE 1 MG PO (08:00)
[2025-05-15] MEDS: THIAMINE INJECTION 200 MG IV (08:00)
[2025-05-15] MEDS: LUMINAL 64.8 MG PO ×3 (08:05→21:29)
--- NOTE | 2025-05-15 08:14 | CM ---
Addendum entered by Aleida Mccallum 05/15/25 13:36:
spoke with Gerard from [facility] who came to see the patient today - he stated that [facility] will not take patient on phenobarbitol taper. tt hospitalist
Gerard request CM fax face sheet & clinicals to [facility] [phone] - CM faxed
Gerard also stated he would obtain authorization
PLAN: [facility] Inpatient when stable
Original Note:
late note
Madalyn from [facility] left voice mail stating that the patient is agreeable to etoh inpatient at [facility] once he is completed detox and medically cleared.
left message for Madalyn [phone] at [facility].
PLAN: Inpatient [facility] once medically stable, [facility] is following
[2025-05-15] MEDS: REVIA 50 MG PO (14:12)
[2025-05-15 15:00] VITALS: BP 136/92
--- NOTE | 2025-05-15 15:02 | W.PN.UPDATE ---
Update Note
Progress Note Update
pt seen for followup. states had felt great this morning, then got a pill that unsettled him. he thought it was naltrexone, but more likely was folic acid. able to eekp food down, waiting for next step after off phenobarb taper ([facility]
rehab.) Had thought he should go to his apt to clean it up before he went to rehab, embarrassed by state of apt, but aware he needs to go directly to [facility], agrees.
[2025-05-15] MEDS: LOVENOX 40 MG SC (17:18)
[2025-05-15] MEDS: ATARAX 50 MG PO (21:28)
[2025-05-15 23:32] VITALS: BP 150/90
[2025-05-16] MEDS: VALIUM INJECTION 10 MG IV (00:41)
[2025-05-16] MEDS: FLUSH (NSS) 2 FLUSH IV (00:42)
[2025-05-16 07:39] LABS: Hematocrit 42.7 % (39.0-52.0); Hemoglobin 14.7 g/dL (13.0-18.0); Mean Corp Hgb Conc. 34.4 g/dL (33.0-37.0); Mean Corpuscular Volume 93.6 fL (80.0-94.0); Platelet Count 116 10^3/uL (130-400); Red Cell Dist. Width 12.7 % (11.5-14.5)
[2025-05-16 08:22] LABS: Blood Urea Nitrogen 10 mg/dl (9-20); Calcium 9.1 mg/dl (8.4-10.2); Carbon Dioxide 27 mmol/L (22-30); Chloride 105 mmol/L (98-107); Estimated Creatinine Clearance > 125 ml/min; Glucose 91 mg/dl (70-99); Potassium 4.7 mmol/L (3.5-5.1); Sodium 139 mmol/L (135-145); eGFR > 60.00
[2025-05-16] MEDS: PROTONIX 40 MG PO (08:35)
[2025-05-16] MEDS: REVIA 50 MG PO (08:36)
[2025-05-16] MEDS: LUMINAL 64.8 MG PO ×3 (08:36→21:52)
[2025-05-16] MEDS: FOLVITE 1 MG PO (08:36)
[2025-05-16 08:38] VITALS: BP 132/86
--- NOTE | 2025-05-16 09:03 | W.PN.HOSP.TC ---
Addendum entered and electronically signed by Abran Blair MD 05/16/25 12:25:
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
MSAS
Phenobarb taper
Thiamine
Folate
Maalox
Oral PPI
Antiemetics
Complete phenobarb taper here and then DC to inpatient [facility]
Original Note:
Today's Communication/Plan
-
Plan reviewed with attending.
PRN benzos for acute worsening of tinnitus.
Continue phenobarbital
Assessment / Plan
Assessment / Plan
IMPRESSION:
49yoM PMH AUD with relapse-remitting alcohol use and known alcohol withdrawal seizures presenting from 7 week binge drinking episode with withdrawal.
Pt reports last alcohol night of 05/11 presenting with severe withdrawal symptoms of hallucinations, tremors, emesis, diarrhea. Most of his symptoms have resolved with continued diarrhea. AFVSS. Electrolytes and LFTs WNL.
Pt reports having success outpt with naltrexone for alcohol cravings. He stopped the shots since they caused soreness. Seems interested in pursuing again out pt.
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 Pt prefers inpt rehab vs intensive outpt. Psych recommends considering starting naltrexone before discharge, pt amenable and appreciative. Pt did not realize vivitrol came in a PO version and
is eager to begin due to the success last time he used it.
Pt reports acute worsening of chronic tinnitus.
Today, pt reports continued episodes of diaphoresis but improved nausea, vomiting, diarrhea. Started naltrexone yesterday. Continues with phenobarb taper dose 64.8mg.
Pt also reports acute worsening of chronic tinnitus. Discussed with ENT. ENT explained acute worsening of tinnitus with withdrawal can happen, PRN benzos. Plan for outpt f/u for audiogram cannot be done inpt.
PLAN:
#Alcohol withdrawal
- Severe withdrawal subsided. Downgraded.
- Continue MSAS protocol
- Continue Phenobarb taper
- Continue Thiamine, folate
- Continue encouraging PO intake
- PO PPI
- Antiemetics.
<del>-</del> EKG stable
-Psych consult appreciated. Recommended starting naltrexone 50mg PO daily while still inpatient.
- Start naltrexone yesterday
#Metabolic acidosis
- IVF, monitor for acute changes
- Serum osm elevated. Acidosis resolved
#hyperbilirubinemia
- Monitor in setting of acute alcohol use. resolved
- Stable AST/ALT/ ALP
#moderate protein calorie malnutrition
- Weight loss during last 7 weeks of binge drinking. Nutrition per RD appreciated.
#acute on chronic tinnitus
- discussed with ENT. PRN benzos.
DVT prophylaxis: lovenox
Diet: normal
Dispotion: [facility] sunday
Anticipated Discharge: 24 - 48 hours
Subjective/Interval History
-
Date of Service: May 16, 2025
Pt reports feeling well today except sedation with phenobarbital. He was awoken by a noise in the hallway around midnight and received PRN valium, otherwise no PRNs used. He reports he continues to have episodes of diaphoresis. Denies nausea,
vomting, diarrhea.
Pt reports worse tinnitus.
Objective Data
-
Labs:
Laboratory Results
05/16/25
07:08
WBC 3.7 L
Hgb 14.7
Hct 42.7
Plt Count 116 L
Sodium 139
Potassium 4.7
Chloride 105
Carbon Dioxide 27
BUN 10
Creatinine 0.8
Glucose 91
Calcium 9.1
Vital Signs:
Vital Signs
Temp Pulse Resp BP Pulse Ox
97.8 F 80 12 132/86 99
05/16/25 08:38 05/16/25 08:38 05/16/25 08:38 05/16/25 08:38 05/16/25 08:38
I&O
05/15/25 05/16/25 05/17/25
06:59 06:59 06:59
Intake Total 1919 / 3419
Balance 1919 / 3419
Physical Exam
-
General: Well Developed, Well Nourished, No Apparent Distress and Comfortable
HEENT: Normocephalic, Atraumatic and Moist Mucous Membranes
Respiratory: Clear to Auscultation and Non Labored Respirations
Cardiac: Regular Rhythm and S1/S2
GI: Soft and Nontender
Musculoskeletal: No Cyanosis and No Edema
Skin: Warm and Dry
Neuro: AO x 3, No Motor Deficits and Nonfocal/Grossly Intact
Psych: Calm
[2025-05-16 15:27] VITALS: BP 127/81
[2025-05-16] MEDS: LOVENOX 40 MG SC (18:19)
[2025-05-16] MEDS: ATARAX 50 MG PO (21:51)
[2025-05-16] MEDS: VALIUM 5 MG PO (22:03)
[2025-05-16 23:13] VITALS: BP 126/91
[2025-05-17 07:00] VITALS: BP 110/82
[2025-05-17] MEDS: PROTONIX 40 MG PO (08:17)
[2025-05-17] MEDS: FOLVITE 1 MG PO (08:17)
[2025-05-17] MEDS: LUMINAL 32.4 MG PO (08:17)
[2025-05-17] MEDS: REVIA 50 MG PO (08:20)
--- NOTE | 2025-05-17 09:07 | W.PN.HOSP.TC ---
Today's Communication/Plan
-
Plan reviewed with attending.
Assessment / Plan
Assessment / Plan
IMPRESSION:
49yoM PMH AUD with relapse-remitting alcohol use and known alcohol withdrawal seizures presenting from 7 week binge drinking episode with withdrawal.
Pt reports last alcohol night of 05/11 presenting with severe withdrawal symptoms of hallucinations, tremors, emesis, diarrhea. Most of his symptoms have resolved with continued diarrhea. AFVSS. Electrolytes and LFTs WNL.
Pt reports having success outpt with naltrexone for alcohol cravings. He stopped the shots since they caused soreness. Seems interested in pursuing again out pt.
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 Pt prefers inpt rehab vs intensive outpt. Psych recommends considering starting naltrexone before discharge, pt amenable and appreciative. Pt did not realize vivitrol came in a PO version and
is eager to begin due to the success last time he used it.
Pt reports acute worsening of chronic tinnitus.
Today, pt reports continued episodes of diaphoresis but improved nausea, vomiting, diarrhea. Started naltrexone yesterday. Continues with phenobarb taper dose 64.8mg.
Pt also reports acute worsening of chronic tinnitus. Discussed with ENT. ENT explained acute worsening of tinnitus with withdrawal can happen, PRN benzos. Plan for outpt f/u for audiogram cannot be done inpt.
PLAN:
#Alcohol withdrawal
- Severe withdrawal subsided. Downgraded.
- Continue MSAS protocol
- Continue Phenobarb taper. 6 doses of last taper.
- Continue Thiamine, folate
- Continue encouraging PO intake
- PO PPI
- Antiemetics.
<del>-</del> EKG stable
-Psych consult appreciated. Recommended starting naltrexone 50mg PO daily while still inpatient.
- Start naltrexone yesterday
#Metabolic acidosis
- IVF, monitor for acute changes
- Serum osm elevated. Acidosis resolved
#hyperbilirubinemia
- Monitor in setting of acute alcohol use. resolved
- Stable AST/ALT/ ALP
#moderate protein calorie malnutrition
- Weight loss during last 7 weeks of binge drinking. Nutrition per RD appreciated.
#acute on chronic tinnitus
- discussed with ENT. SILVINO estrella.
DVT prophylaxis: lovenox
Diet: normal
Dispotion: [facility] sunday
Anticipated Discharge: Within 24 hours
Subjective/Interval History
-
Date of Service: May 17, 2025
Pt reports feeling well. His tinnitis is improving each day.
Objective Data
-
Vital Signs:
Vital Signs
Temp Pulse Resp BP Pulse Ox
98.2 F 83 18 110/82 99
05/17/25 07:00 05/17/25 07:00 05/17/25 07:00 05/17/25 07:00 05/17/25 07:00
I&O
05/16/25 05/17/25 05/18/25
06:59 06:59 06:59
Intake Total 3420 / 3420 1200 / 1200
Balance 3420 / 3420 1200 / 1200
Physical Exam
-
General: Well Developed, Well Nourished and No Apparent Distress
HEENT: Normocephalic, Atraumatic, Moist Mucous Membranes and Anicteric
Respiratory: Clear to Auscultation and Non Labored Respirations
Cardiac: Regular Rhythm and S1/S2
GI: Nondistended
Musculoskeletal: No Edema
Skin: Warm and Dry
Neuro: AO x 3, No Motor Deficits and Nonfocal/Grossly Intact
Psych: Calm
--- NOTE | 2025-05-17 12:09 | W.PN.UPDATE ---
Update Note
Progress Note Update
Patient seen by me on 05/17/2025 from 11:52am-12:09pm
Psychiatry follow up for severe alcohol use disorder. Patient states he is feeling well and eager for discharge. He states he does not want to take the inpatient treatment route, but rather IOP, meetings and his sponsor. He states his family is
local and supportive of this plan. He states he previously responded very well to Vivitrol and is interested in continuing PO naltrexone after discharge.
MSE- good eye contact. fluent spontaneous speech. calm and cooperative. logical and goal directed. denies SI/HI/AVH. no delusions. Fair I/J. fully oriented
A/P- 49 yo male with alcohol use disorder, now stable for discharge with plan for D&A IOP, meetings and support of sponsor/family. continue naltrexone 50mg daily.
--- NOTE | 2025-05-17 12:49 | W.DCSUMMARY ---
Discharge Summary
Discharge Data
Date of Admission: 05/12/25
Date of Discharge: 05/17/25
-
Pending Results: No
Hospital Course
49yoM PMH AUD relapsing/remitting course between sobriety and binging presenting from acute relapse 7 weeks of alcohol use after 2 years sober with withdraw:tremors, visual hallucinations, abdominal pain, emesis.
Pt describes his usual state of health between relapses with no pertinent PMH. He does not take any medications at home beyond a multivitamin when he is not consuming alcohol. Recently quit his job during this episode. Reached out to family for
support.
Pt is urinating appropriately with diarrhea for the last few weeks. He explains that he has had no real food and has had persistent diarrhea for weeks. Reports stomach pain, severe tinnitis elevated from baseline, and continued hallucination while
in the room.
Severe alcohol withdrawal protocol initiated. Started on phenobarb taper, PRN benzodiazepines, hydroxyzine, folate, thiamine, zofran. EKG stable, CXR demonstrated no obvious abnormalities, electrolytes WNL.
By next morning, pt reported resolution of visual hallucinations. He had continued diarrhea and mild abdominal pain.
Resolved diarrhea. Continued to have profuse sweating. Scored 0-1 on MSAS. Began naltrexone 05/15/25, tolerating well.
Continued phenobarbital taper. Pt continued taper inpatient with intention of going to inpatient rehab. 05/17, last dose of tapering phenobarbital, pt decided to purusue outpatient rehab and go home.
Discharge Plan
-
Patient Disposition: Home (Routine Discharge)
Discharge Diagnosis/Procedures: acute alcohol withdrawal
Condition: Good
Diet: No restrictions
Activity: No restrictions
Driving Restrictions: As prior to admission
Bathing Restrictions: None
Referrals:
NONE,* [Family Provider, Internal Medicine]
Additional Discharge Medication Instructions: Take phenobarbital as instructed through tomorrow.
Naltrexone every day.
Prescriptions:
New
naltrexone 50 mg Tablet
50 mg PO DAILY Qty: 30 0RF
pantoprazole 40 mg Tablet,Delayed Release (Dr/Ec)
40 mg PO DAILY Qty: 30 0RF
folic acid 1 mg Tablet
1 mg PO DAILY Qty: 30 0RF
phenobarbital 32.4 mg Tablet
32.4 mg PO BID Qty: 3 0RF
Discharge Orders:
Discharge Patient (As Directed); Ordered 05/17/25
Ordered By: Melinda Dupont
Discharge Date and Time
Print Language: MAURITIAN
--- NOTE | 2025-05-17 13:13 | CM ---
MILTON met with Rosalino to discuss transfer to [facility] once phenobarb taper is complete.
Rosalino has decided to return home and will attend an IOP at [facility].
Pt plans to take oral naltrexone, go to meetings and has support from his brother and his sponsor.
Plan: Discharge to home with IOP at [facility].
[2025-05-17 13:25] VITALS: BP 146/95
== END 2025-05-17 13:46 | DRG 897 ==
LOC: 3 WEST ACU 17:56
PROVIDERS: Nurse Practitioner Family; Student in an Organized Health Care Education/Training Program; ADMITTING PHYSICIAN Hospitalist; EMERGENCY PHYSICIAN Emergency Medicine; OTHER PHYSICIAN Internal Medicine Critical Care Medicine; OTHER PHYSICIAN Psychiatry & Neurology Psychiatry
DX: F10.231 Alcohol dependence with withdrawal delirium (principal); R17 Unspecified jaundice; E87.20 Acidosis, unspecified; E44.0 Moderate protein-calorie malnutrition; H93.12 Tinnitus, left ear; Z68.25 Body mass index [BMI] 25.0-25.9, adult; D69.6 Thrombocytopenia, unspecified; E86.1 Hypovolemia; F41.9 Anxiety disorder, unspecified; Y90.7 Blood alcohol level of 200-239 mg/100 ml
CPT/HCPCS: 71045; 80048; 80053; 80306; 80307; 81003; 81015; 82010; 82077; 82962; 82977; 83690; 83735; 83930; 84100; 85025; 85027; 85610; 85730; 93005; 96361; 96374; 96375; 96376; 99285

== ENCOUNTER 2025-07-25 10:18 | Inpatient (IN) | payer OTHER, SELFPAY ==
[2025-07-25] VITALS (20 sets, daily range): BP systolic 114–160; BP diastolic 76–104; BMI 26.8; BMI 26.1
[2025-07-25] MEDS: ATIVAN 2 MG IV ×2 (07:45→07:51)
[2025-07-25] MEDS: NSS 1000 IV ×3 (07:46→20:11)
[2025-07-25] MEDS: THIAMINE INJECTION 200 MG IV ×2 (07:47→20:11)
[2025-07-25 07:57] LABS: Hematocrit 42.9 % (39.0-52.0); Hemoglobin 15.5 g/dL (13.0-18.0); Mean Corp Hgb Conc. 36.1 g/dL (33.0-37.0); Mean Corpuscular Volume 88.8 fL (80.0-94.0); Nucleated Red Blood Cells % 0 % (-); Platelet Count 275 10^3/uL (130-400); Red Cell Dist. Width 13.4 % (11.5-14.5)
[2025-07-25 08:05] LABS: INR 0.96; PT 12.9 Sec (11.4-14.6)
[2025-07-25 08:10] LABS: ALT (SGPT) 21 U/L (0-50); AST (SGOT) 25 U/L (17-59); Albumin 5.0 g/dl (3.5-5.0); Alkaline Phosphatase 57 U/L (38-126); Blood Urea Nitrogen 8 mg/dl (9-20); Calcium 9.7 mg/dl (8.4-10.2); Carbon Dioxide 22 mmol/L (22-30); Chloride 104 mmol/L (98-107); Estimated Creatinine Clearance > 125 ml/min; Glucose 97 mg/dl (70-99); Lipase 103 U/L (23-300); Magnesium 1.9 mg/dl (1.6-2.3); Potassium 4.7 mmol/L (3.5-5.1); Sodium 138 mmol/L (135-145); Total Protein 8.6 g/dl (6.3-8.2); eGFR > 60.00
[2025-07-25 08:11] LABS: Venous Blood Gas B.E. 2.0 mmol/L (-4 to +4); Venous Blood Gas O2 Sat % 92.8 %
--- NOTE | 2025-07-25 08:11 | ED.GENMED ---
History of Present Illness
<Salome Rodriguez PA-C - Last Filed: 07/25/25 15:12>
General
Chief Complaint: Withdrawal Symptoms
Source: patient
Exam Limitations: none
Time Seen by Provider: 07/25/25 07:09
Nursing documentation reviewed up to this point in time: agreed with
History of Present Illness
History of Present Illness:
see MDM
Past History
<DENNIS Latif Last Filed: 07/25/25 15:12>
Past History
ED Past Medical History: Psychiatric (chronic alcoholism), Other (Anal fistula) and Other (insomnia)
Social History
Tobacco: Non-smoker
Alcohol: Chronic alcoholic
Personal: Single
Review of Systems
<DENNIS Latif Last Filed: 07/25/25 15:12>
Review of Systems
Allergies reviewed?: Yes
All Other Systems: Not applicable
Phy Exam
<DENNIS Latif Last Filed: 07/25/25 15:12>
Physical Exam
Physical Exam:
see MDM
Course
<DENNIS Latif Last Filed: 07/25/25 15:12>
Orders/Labs/Results
Orders:
Orders
07/25/25 07:26
Lorazepam [Ativan] 2 mg IV NOW STA
Thiamine Injection 200 mg IV NOW STA
07/25/25 07:27
Electrocardiogram (*1) Urgent
Reason for Study: Chest Pain
EKG- Treatment ONCE
07/25/25 07:30
0.9% Sodium Chloride 1000 ml [Nss] 1,000 ml IV Wide Open mls/hr
07/25/25 07:44
Alcohol Urgent
Complete Blood Count/With Diff Urgent
Comprehensive Metabolic Panel Urgent
Creatine Phosphokinase Urgent
Lipase Urgent
Magnesium Urgent
Phosphorus Urgent
Prothrombin Time Urgent
TSH Urgent
Comment: ADD ON
Troponin I Urgent
Venous Blood Gas Urgent
%Oxygen/Room Air: 21
Vitamin B12 Urgent
Comment: ADD ON
07/25/25 07:48
Lorazepam [Ativan] 2 mg .ROUTE .STK-MED ONE
07/25/25 07:50
Lorazepam [Ativan] 2 mg IV NOW STA
Lorazepam [Ativan] 2 mg IV NOW STA
07/25/25 09:50
Admit/Transfer Patient As Directed
Co-Sign Provider:
Level of Care: Inpatient admission
Assign to:: ICU
Physician / Group: hospitalist
Diagnosis: alcohol withdrawal
Reason for Hospitalization: Alcohol withdrawal
Expected length of stay greater than two midnights?: Yes
ELOS- Estimated Length of Stay in days: 3
I certify the patient meets the requirements for IP care: Yes
PRN Pain Medication Management As Directed
May give lesser potent ordered pain med per pt: Yes
preference::
Protocol:: Medication orders for pain may be administered in a
manner that supports deferring to patient preference
when the pt is:
- Requesting an ordered lesser potent pain medication.
Least to most potent pain medications are defined
as: acetaminophen < NSAID < tramadol < opioids
(morphine, oxycodone, hydromorphone).
- Requesting a lesser dose of the same medication IF
ORDERED.
- Requesting a less intrusive route of administration
if both routes are prescribed by the provider (PO <
IV).
07/25/25 09:55
Code Status As Directed
Resuscitation Status: Full Code
07/25/25 11:18
Urinalysis Reflex To Culture Urgent
Date Specimen was Collected: 07/25/25
Time Specimen was Collected: 11:16
Urine Drug Abuse Screen Urgent
Date Specimen was Collected: 07/25/25
Time Specimen was Collected: 11:16
07/25/25 11:25
0.9% Sodium Chloride 1000 ml [Nss] 1,000 ml IV 100 mls/hr
0.9% Sodium Chloride [Nss (Preservative Free)] See Protocol IV PRN PRN
Acetaminophen [Tylenol] 650 mg PO Q4HPRN PRN
Bisacodyl [Dulcolax] 10 mg RECTAL [id number] PRN
Docusate W/Senna [Senokot-S] 1 tablet PO BIDPRN PRN
Lorazepam [Ativan] 1 mg IV Q1HPRN PRN
Lorazepam [Ativan] 1 mg PO Q2HPRN PRN
Lorazepam [Ativan] 2 mg IV Q1HPRN PRN
Phenobarbital Sodium [Phenobarbital] 260 mg 0.9% Sodium Chloride 100 ml [Nss] 100 ml IV NOW
Polyethylene Glycol Powder [Miralax] 17 grams PO DAILYPRN PRN
07/25/25 11:25
Case Management Consult Once
Case Management Consult: Other
Comment: Substance abuse counseling
DIETARY IP CONSULT Routine
Reason for Consult: Nutrition support, possible refeeding guidelines
Hospitality House Supervisor Consult Routine
Consulting Provider: Goldie Jimenez
Was physician already notified: Yes
Activity As Directed
Activity Level: Out of Bed-Early Mobility
MSAS SCORE As Directed
MSAS Score 0-4: Repeat MSAS every 2 hours until 0-4 for three consecutive assessments, then every 4 hours x 48
hours.
MSAS Score 5-7: For MILD withdrawl symptoms. Repeat MSAS and RASS every 2 hours
MSAS Score 8-11: For MODERATE withdrawal symptoms. Repeat MSAS and RASS every 1 hour. Consider ICU or IMU
level of care.
MSAS Score > 11: For SEVERE withdrawal symptoms. Repeat MSAS and RASS every 1 hour. Notify provider, consider
ICU level of care.
MSAS Additional Instructions: If no improvement or no decrease in score from severe to moderate within 12
hours, consult psychiatry
MSAS Notify Provider: Notify provider if patient requires more than 10 mg of Lorazepam in eight hour period.
Vital Signs As Directed
Frequency: Per unit guidelines
DX Deep Vein Thrombosis Video Routine
07/25/25 12:00
FOLic ACID [Folvite] 1 mg 0.9% Sodium Chloride 50 ml [Nss] 50 ml IV DAILY
07/25/25 16:00
Phenobarbital Sodium [Phenobarbital] 97.5 mg IV TID
07/25/25 18:00
Enoxaparin Sodium [Lovenox] 40 mg SC QPM
07/25/25 20:00
Thiamine Injection 200 mg IV Q12
07/26/25 06:00
Complete Blood Count/With Diff IN AM
Comprehensive Metabolic Panel IN AM
Magnesium IN AM
07/27/25 16:00
Phenobarbital [Luminal] 64.8 mg PO TID
07/29/25 16:00
Phenobarbital [Luminal] 32.4 mg PO TID
Abnormal Lab Results
07/25/25
07:44
MCH 32.1 H pg
(27.0-31.0)
Monocytes % 10.3 H %
(1.7-9.3)
VBG pH 7.53 H
(7.32-7.43)
VBG pCO2 28 L mmHg
(35-48)
VBG pO2 58 H mmHg
(30-50)
BUN 8 L mg/dl
(9-20)
Total Protein 8.6 H g/dl
(6.3-8.2)
07/25/25 07:44
07/25/25 07:44
Vital Signs
Initial and Last Documented VS:
Initial Vital Signs
Temp Pulse Resp BP Pulse Ox
36.9 C 91 18 160/104 98
07/25/25 06:59 07/25/25 06:59 07/25/25 06:59 07/25/25 06:59 07/25/25 06:59
Last Documented Vital Signs
Temp Pulse Resp BP Pulse Ox
37.1 C 91 18 129/102 95
07/25/25 12:00 07/25/25 13:00 07/25/25 13:00 07/25/25 13:00 07/25/25 13:00
<Tricia Escoto MD - Last Filed: 07/25/25 08:20>
Orders/Labs/Results
Orders:
Orders
07/25/25 07:26
Lorazepam [Ativan] 2 mg IV NOW STA
Thiamine Injection 200 mg IV NOW STA
07/25/25 07:27
Electrocardiogram (*1) Urgent
Reason for Study: Chest Pain
EKG- Treatment ONCE
07/25/25 07:30
0.9% Sodium Chloride 1000 ml [Nss] 1,000 ml IV Wide Open mls/hr
07/25/25 07:44
Alcohol Urgent
Complete Blood Count/With Diff Urgent
Comprehensive Metabolic Panel Urgent
Creatine Phosphokinase Urgent
Lipase Urgent
Magnesium Urgent
Phosphorus Urgent
Prothrombin Time Urgent
TSH Urgent
Comment: ADD ON
Troponin I Urgent
Venous Blood Gas Urgent
%Oxygen/Room Air: 21
Vitamin B12 Urgent
Comment: ADD ON
07/25/25 07:48
Lorazepam [Ativan] 2 mg .ROUTE .STK-MED ONE
07/25/25 07:50
Lorazepam [Ativan] 2 mg IV NOW STA
Lorazepam [Ativan] 2 mg IV NOW STA
07/25/25 09:50
Admit/Transfer Patient As Directed
Co-Sign Provider:
Level of Care: Inpatient admission
Assign to:: ICU
Physician / Group: hospitalist
Diagnosis: alcohol withdrawal
Reason for Hospitalization: Alcohol withdrawal
Expected length of stay greater than two midnights?: Yes
ELOS- Estimated Length of Stay in days: 3
I certify the patient meets the requirements for IP care: Yes
PRN Pain Medication Management As Directed
May give lesser potent ordered pain med per pt: Yes
preference::
Protocol:: Medication orders for pain may be administered in a
manner that supports deferring to patient preference
when the pt is:
- Requesting an ordered lesser potent pain medication.
Least to most potent pain medications are defined
as: acetaminophen < NSAID < tramadol < opioids
(morphine, oxycodone, hydromorphone).
- Requesting a lesser dose of the same medication IF
ORDERED.
- Requesting a less intrusive route of administration
if both routes are prescribed by the provider (PO <
IV).
07/25/25 09:55
Code Status As Directed
Resuscitation Status: Full Code
07/25/25 11:18
Urinalysis Reflex To Culture Urgent
Date Specimen was Collected: 07/25/25
Time Specimen was Collected: 11:16
Urine Drug Abuse Screen Urgent
Date Specimen was Collected: 07/25/25
Time Specimen was Collected: 11:16
07/25/25 11:25
0.9% Sodium Chloride 1000 ml [Nss] 1,000 ml IV 100 mls/hr
0.9% Sodium Chloride [Nss (Preservative Free)] See Protocol IV PRN PRN
Acetaminophen [Tylenol] 650 mg PO Q4HPRN PRN
Bisacodyl [Dulcolax] 10 mg RECTAL [id number] PRN
Docusate W/Senna [Senokot-S] 1 tablet PO BIDPRN PRN
Lorazepam [Ativan] 1 mg IV Q1HPRN PRN
Lorazepam [Ativan] 1 mg PO Q2HPRN PRN
Lorazepam [Ativan] 2 mg IV Q1HPRN PRN
Phenobarbital Sodium [Phenobarbital] 260 mg 0.9% Sodium Chloride 100 ml [Nss] 100 ml IV NOW
Polyethylene Glycol Powder [Miralax] 17 grams PO DAILYPRN PRN
07/25/25 11:25
Case Management Consult Once
Case Management Consult: Other
Comment: Substance abuse counseling
DIETARY IP CONSULT Routine
Reason for Consult: Nutrition support, possible refeeding guidelines
Hospitality House Supervisor Consult Routine
Consulting Provider: Goldie Jimenez
Was physician already notified: Yes
Activity As Directed
Activity Level: Out of Bed-Early Mobility
MSAS SCORE As Directed
MSAS Score 0-4: Repeat MSAS every 2 hours until 0-4 for three consecutive assessments, then every 4 hours x 48
hours.
MSAS Score 5-7: For MILD withdrawl symptoms. Repeat MSAS and RASS every 2 hours
MSAS Score 8-11: For MODERATE withdrawal symptoms. Repeat MSAS and RASS every 1 hour. Consider ICU or IMU
level of care.
MSAS Score > 11: For SEVERE withdrawal symptoms. Repeat MSAS and RASS every 1 hour. Notify provider, consider
ICU level of care.
MSAS Additional Instructions: If no improvement or no decrease in score from severe to moderate within 12
hours, consult psychiatry
MSAS Notify Provider: Notify provider if patient requires more than 10 mg of Lorazepam in eight hour period.
Vital Signs As Directed
Frequency: Per unit guidelines
DX Deep Vein Thrombosis Video Routine
07/25/25 12:00
FOLic ACID [Folvite] 1 mg 0.9% Sodium Chloride 50 ml [Nss] 50 ml IV DAILY
07/25/25 16:00
Phenobarbital Sodium [Phenobarbital] 97.5 mg IV TID
07/25/25 18:00
Enoxaparin Sodium [Lovenox] 40 mg SC QPM
07/25/25 20:00
Thiamine Injection 200 mg IV Q12
07/26/25 06:00
Complete Blood Count/With Diff IN AM
Comprehensive Metabolic Panel IN AM
Magnesium IN AM
07/27/25 16:00
Phenobarbital [Luminal] 64.8 mg PO TID
07/29/25 16:00
Phenobarbital [Luminal] 32.4 mg PO TID
Abnormal Lab Results
07/25/25
07:44
MCH 32.1 H pg
(27.0-31.0)
Monocytes % 10.3 H %
(1.7-9.3)
VBG pH 7.53 H
(7.32-7.43)
VBG pCO2 28 L mmHg
(35-48)
VBG pO2 58 H mmHg
(30-50)
BUN 8 L mg/dl
(9-20)
Total Protein 8.6 H g/dl
(6.3-8.2)
07/25/25 07:44
07/25/25 07:44
Vital Signs
Initial and Last Documented VS:
Initial Vital Signs
Temp Pulse Resp BP Pulse Ox
36.9 C 91 18 160/104 98
07/25/25 06:59 07/25/25 06:59 07/25/25 06:59 07/25/25 06:59 07/25/25 06:59
Last Documented Vital Signs
Temp Pulse Resp BP Pulse Ox
37.1 C 91 18 129/102 95
07/25/25 12:00 07/25/25 13:00 07/25/25 13:00 07/25/25 13:00 07/25/25 13:00
<Salome Rodriguez PA-C - Last Filed: 07/25/25 15:12>
MDM/Problems Addressed
Differential Diagnosis Includes:
see MDM
MDM/Problems Addressed:
Note:
CHIEF COMPLAINT(S)
Chest pain with radiating sensation to the left arm, nausea, vomiting, diarrhea, tinnitus exacerbation, and insomnia.
HISTORY OF PRESENT ILLNESS
The patient is a 49-year-old male with a history of alcohol use disorder who presents with chest pain and associated withdrawal symptoms following an alcohol binge. The symptoms began approximately one week ago, following a period of sobriety
lasting about a month and a half. The patient describes the chest pain as shooting and tight, radiating from the left side down the arm, and states it started around midnight. He reports consuming various alcoholic beverages, including beer and hard
liquor. Over the past week, he developed nausea, vomiting, and diarrhea, describing the latter as uncontrollable and having started on the same night these symptoms began. Additionally, the patient reports a history of seizures during prior
withdrawal episodes but did not have one this time.
his last drink was around 6 pm last night. he passed out and woke up around midnight with all of the withdrawal symptoms and chest pain.
The patient also reports significant insomnia, stating that he has been fighting sleep for days. He has a history of permanent tinnitus, worsened by alcohol, present for more than a year. He mentions experiencing heightened anxiety and describes
past episodes of auditory and visual hallucinations during withdrawal, though not currently. The patient also reports depressive symptoms, compounded by financial and housing stressors, and a history of prior alcohol rehabilitation, which he recalls
positively.
he reports he is depressed but not suicidal, wants help
when he spoek with his mother this am to bring him in, she was worried about his depression, he does feel very depressed
but he asked for help and to be brought here
no SI.
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 He also mentions experiencing depression and feelings of isolation, along with stress from past successful
employment endeavors. The patient states that his living situation contributes to his stress and lack of support, and he has experienced suicidal ideation in the past.
REVIEW OF SYSTEMS
- Cardiovascular: Chest pain radiating to the left arm.
- Gastrointestinal: Nausea, vomiting, diarrhea.
- Neurological: Tinnitus, anxiety, insomnia. No current auditory or visual hallucinations.
- Respiratory: Shortness of breath not reported.
PHYSICAL EXAM
GENERAL: Alert , diaphoretic, tremulous, tearful, alcohol on breath
EYE: pupils equal and reactive
NECK: Supple
ENT: o/p clr, mmm.
CARDIAC: Regular rate and rhythm .no tachycardia
LUNGS: Clear breath sounds bilaterally, no acute respiratory distress, no wheezes/rales/rhonchi
ABDOMEN: Soft, without focal tenderness, no r/g, no cvat, normal bowel sounds
NEUROLOGICAL: Alert and oriented, no focal neuro deficits, visible tremor
SKIN: Warm and dry, skin intact.
MUSCULOSKELETAL: No edema, well perfused. neg catrachita's sign
PSYCH: tearful, apologetic, not SI; no hallucinations
Nursing notes reviewed and vital signs reviewed.
PLAN
- Monitor and treat alcohol withdrawal symptoms with intravenous fluids and medications as indicated to prevent seizures.
- Conduct laboratory tests, including blood work, to assess the patients current condition.
- Consult with [facility] to explore options for inpatient care and potential rehabilitation programs.
- Assess for any further risk of self-harm; patient states he does not want to and seeks help.
- Engage in discussions regarding long-term rehabilitation and support structures post-hospitalization.
DIFFERENTIAL DIAGNOSIS
The Differential Diagnosis includes, in no particular order and is not limited to:
- Alcohol withdrawal syndrome
- Acute coronary syndrome
- Anxiety disorder
- Gastroesophageal reflux disease
- Dehydration
- Infectious colitis
- Peripheral neuropathy
- Insomnia due to caffeine use
- Major depressive disorder
- Substance-induced mood disorder
49 y/o M
h/o alcohol withdrawal seizure
binge driking x 1 week
fell asleep last night passed out and woke up with withdarwal symptoms, nausea/vomiting, diarrhea, sweats, headache, anxiety, agitation
some passive SI
called mom this mronig for help
contracts for safety, wants help
very tremulous
diaphoretic
but not tachy
hypertensive
ciwa was about 25
given 4 mg iv ativan (2 and 2)
and mucj improved
labs reassuring
will admit for alcohol withdrawal
<Salome Rodriguez PA-C - Last Filed: 07/25/25 15:12>
*Pulse Oximetry
SaO2: 93
Oxygen Mode of Delivery: Room air
Patient hypoxic: no (95)
*Critical Care Note
Total Time (30-74mins, 75-104mins- exclusive of procedures): Not Applicable
ED Attending Note
<Salome Rodriguez PA-C - Last Filed: 07/25/25 15:12>
-
Portions of this chart may have been created with voice recognition software.� Occasional wrong word or��sound alike� substitutions may have occurred due to the inherent limitations of voice recognition software.
<Tricia Escoto MD - Last Filed: 07/25/25 08:20>
ED Attending Note
Patient seen and examined by attending physician: Yes
I performed the substantive portion of visit, reviewed & personally made and approve the management plan that is documented in note by myself or PAT.: Yes
ED Attending Note:
Patient appears nontoxic but still appears slightly anxious. Heart rate ranges from 90s to low 100s. Mild tremor. Lungs are clear
Discharge Plan
Departure
Patient Disposition: Admit
Date of Disposition: 07/25/25
Time of Disposition: 08:36
Admit to: IMU
Presentation/result/management discussed w/ accepting MD/DO: Hospitalist
Discharge Problem:
Alcohol withdrawal, Chest pain, Anxiety
Interventions
Interventions:
*Risk Screen - Suicide Last Done: 07/25/25 07:59
*General Assessment Last Done: 07/25/25 07:58
*Neglect/Abuse Screening Last Done: 07/25/25 07:59
*ED COVID-19 Vaccine History Last Done: 07/25/25 07:58
*ED Influenza Vaccine History Last Done: 07/25/25 07:58
[facility] Fall Risk Assessment Tool Last Done: 07/25/25 07:55
*Nursing Disposition Last Done: 07/25/25 11:35
ED- Neurological Assessment Last Done: 07/25/25 08:02
ED-Psychological Assessment Last Done: 07/25/25 08:02
Discharge Date and Time
Discharge Date/Time: 07/25/25 11:35
--- NOTE | 2025-07-25 08:11 | EDRN ---
Dr. Escoto in room w/pt.
[2025-07-25 08:21] LABS: Troponin I < 0.012 ng/ml
--- NOTE | 2025-07-25 08:43 | EDRN ---
Shirin HORAN in room w/ pt.
--- NOTE | 2025-07-25 09:59 | HPS.HSE ---
Addendum entered and electronically signed by Ricci Bueno MD 07/25/25 13:26:
I saw and examined the patient.
The Resident's note was reviewed and I agree with the note.
Comment:
Patient 49 years old male with history of alcohol use disorder and alcohol withdrawal seizures came into the hospital with alcohol withdrawal. Patient last time he drank was around 6 PM last evening. He has been drinking heavily and he has been
noticed to have high CIWA score although by the time of my evaluation patient seems improved. No hallucinations or delusions. Urine tox positive for benzos and marijuana. Discussed with mother at bedside.
Physical exam:
Respiratory: Clear to Auscultation; Negative Wheezes, Rales or Rhonchi
Cardiac: Regular Rhythm, tachycardic, and S1/S2
GI: Soft, Nontender and Nondistended
Musculoskeletal: No Clubbing, No Cyanosis and No Edema
Neuro: Awake, Alert and Oriented, no neurological deficit, has some tremors
Alcohol withdrawal--> CIWA protocol, phenobarbital tapering, thiamine and folate, ICU or IMU today and transfer to telemetry later tonight or tomorrow if uneventful. Patient expresses interest in alcohol rehab.
Original Note:
Family Physician
-
Family Physician: NOT KNOW UNKNOWN - PT DOES
Chief Complaint
-
Alcohol withdrawal
History of Present Illness
49-year-old male with longstanding history of alcohol use disorder presents today with chest pain and tremors. He reports of chronic alcohol use since age of 17 and a longstanding history of insomnia beginning around the same time. He was sober
for approximately 14 months until April of this year when he relapsed and required hospitalization for alcohol binging. Since then he reports another brief episode of sobriety lasting for about 1.5 months before resuming heavy alcohol use.
Over the past week the patient has experienced worsening nausea, vomiting, diarrhea associated with alcohol intake. His last alcoholic drink was 6 PM last night. He reports that he passed out and woke up during midnight with acute onset chest pain
and symptom consistent with alcohol withdrawal including tremors. The chest pain is described as shooting and tight in quality located on the left side radiating down the left arm. The pain was significant enough to wake him up from sleep. He
also endorses increased anxiety and depressed mood which he attributes to alcohol use and worsening financial, housing, psychosocial stressors. He reports prior history of multiple alcohol withdrawal seizures and tremors but denies seizures or
hallucinations last night.
He reports prior withdrawal seizure occurred approximately 2 years ago. He reports of fighting the seizures and tremors. History of permanent tinnitus which is worsened by alcohol use. History of prior alcohol rehabilitation in [place] with
positive results.
Medical History
Past Medical History
Past Medical History: Reports Psychiatric (anxiety, depression)
Past Surgical History: Reports None
Social History
Tobacco: Non-smoker
Alcohol: Binge drinker
Drug: None
Personal: Single
Living: Alone
Employment: Not Employed
Family History
Family History: Not pertinent
Allergies / Home Medications
Allergies reflects when Allergies were last updated in [employer].
Home Medications with original date entered in [employer]
Allergy/Medication List:
Allergies
Allergy/AdvReac Type Severity Reaction Status Date / Time
No Known Allergies Allergy Verified 07/25/25 06:59
Home Medications
folic acid 1 mg tablet 1 mg PO DAILY #30 tabs 05/17/25
hydroxyzine HCl 50 mg tablet 50 mg PO HS #30 tabs 05/17/25
naltrexone 50 mg tablet 50 mg PO DAILY #30 tabs 05/17/25
pantoprazole 40 mg tablet,delayed release 40 mg PO DAILY #30 tabs 05/17/25
phenobarbital 32.4 mg tablet 32.4 mg PO BID #3 tabs 05/17/25
Review of Systems
-
History Source: Patient and Family
A 12 point ROS was completed and negative except as noted: Yes
Physical Exam
Vital Signs
Vital Signs
Temp Pulse Resp BP Pulse Ox
98.4 F 93 15 124/91 97
07/25/25 06:59 07/25/25 09:15 07/25/25 09:15 07/25/25 09:00 07/25/25 09:15
Physical Exam
General: Comfortable and Conversant
HEENT: NormoCephalic and Anicteric
Respiratory: Clear
Cardiac: S1/S2 and Regular Rhythm
GI: Soft, Non Tender, Non Distended and Normal Bowel Sounds
Musculoskeletal: No Edema
Skin: Warm and Dry
Neuro: AO x 3 and Nonfocal/grossly intact; No Tremors
Hematologic/Lymphatic: No Lymphadenopathy
Psych: Calm
Laboratory Results
-
07/25/25 07:44
07/25/25 07:44
Laboratory Results
PT 12.9 Sec (11.4-14.6) 07/25/25 07:44
INR 0.96 07/25/25 07:44
Total Bilirubin 0.6 mg/dl (0.2-1.3) 07/25/25 07:44
AST 25 U/L (17-59) 07/25/25 07:44
ALT 21 U/L (0-50) 07/25/25 07:44
Alkaline Phosphatase 57 U/L (38-126) 07/25/25 07:44
Troponin I < 0.012 ng/ml 07/25/25 07:44
Lipase 103 U/L (23-300) 07/25/25 07:44
Data Reviewed
-
Medical Tests (Nuc Med, Echo, EKG etc): Report Reviewed by me and Discussed with Physician
Lab Data: Labs Reviewed by me and Discussed with Physician
Impression/Plan
-
IMPRESSION:
Acute alcohol disorder with alcohol withdrawal symptoms
Hypomagnesemia
History of insomnia
PLAN:
Acute alcohol disorder with alcohol withdrawal symptoms
Admit to ICU
CIWA score 25
M wali protocol
IV thiamine and folic acid
IV phenobarbital alcohol withdrawal protocol
Replete magnesium
Continue to monitor closely
Hypomagnesemia
Mg 1.9.
Replete magnesium
Check magnesium in am
History of insomnia
Continue hydroxyzine
Full code
Lovenox
--- NOTE | 2025-07-25 10:11 | EDRN ---
Pt was seen by Dr. Bueno's resident and Dr. Bueno is now in room w/ pt.
--- NOTE | 2025-07-25 10:58 | CM ---
Consult received and chart reviewed
Spoke with his ED provider
Spoke with patient and his mother at ED bedside
Lives in [address] [place] [address] alone
It is an apartment on 3rd floor no elevator access
Independent
no DME
PCP does NOT have one
CM encouraged to pick one after talking to his HP
RX [facility] in [place]
no hx of VN
no hx of SNF
He was here in 04/2025 and worked with [facility]
He declined [facility]
He was supposed to go to [facility] instead but per patient and mother Deysi, he never went.
Patient is agreeable with [facility] consult
Cm spoke with Gerard at [facility] to follow up
DCP to be decided
Cm will continue to follow up for any dcp needs
--- NOTE | 2025-07-25 11:03 | EDRN ---
Attempting to call rep[rt to MANNEQUIN WIG MAKER who will be caring for pt in room 3367 at this time.
--- NOTE | 2025-07-25 11:07 | EDRN ---
No Delay Nurse Report called to Sasha SIEGEL in ICU at this time.
--- NOTE | 2025-07-25 11:15 | EDRN ---
Pt had voided in BR w/ urine spec obtained and sent prior to going to admission bed in ICU.
--- NOTE | 2025-07-25 11:33 | CON.INTV ---
Consultation
Consultation Request
Date/Time Consultation Requested: 07/25/25
Date/Time Consultation Performed: 07/25/25
Performing Provider: Barbara
Reason for Consultation: ETOH w/d
Medical History
-
History of Present Illness:
49-year-old male with longstanding history of alcohol use disorder presents today with chest pain and tremors. He reports of chronic alcohol use since age of 17 and a longstanding history of insomnia beginning around the same time. He was sober
for approximately 14 months until April of this year when he relapsed and required hospitalization for alcohol binging. Since then he reports another brief episode of sobriety lasting for about 1.5 months before resuming heavy alcohol use.
Over the past week the patient has experienced worsening nausea, vomiting, diarrhea associated with alcohol intake. His last alcoholic drink was 6 PM last night.
Notes that he did not complete rehab after last visit. Admitted to ICU for acute alcohol withdrawal.
Past Medical History
Past Medical History: Other (see list below)
Social History
Tobacco: Non-smoker
Alcohol: Binge Drinker
Drug: None
Family History
Family History: Reviewed & Not Pertinent
Allergies / Home Medications
Allergies
Allergy/AdvReac Type Severity Reaction Status Date / Time
No Known Allergies Allergy Verified 07/25/25 06:59
Home Medications
�Medication �Instructions �Recorded �Confirmed �Last Taken �Type
folic acid 1 mg tablet 1 mg PO DAILY #30 tabs 05/17/25 Unknown Rx
hydroxyzine HCl 50 mg tablet 50 mg PO HS #30 tabs 05/17/25 Unknown Rx
naltrexone 50 mg tablet 50 mg PO DAILY #30 tabs 05/17/25 Unknown Rx
pantoprazole 40 mg tablet,delayed 40 mg PO DAILY #30 tabs 05/17/25 Unknown Rx
release
phenobarbital 32.4 mg tablet 32.4 mg PO BID #3 tabs 05/17/25 Unknown Rx
Review of Systems
-
History Source: Patient
All other systems: Negative unless noted
Vitals / Labs / Diagnostic Testing
Vital Signs
Temp Pulse Resp BP Pulse Ox
98.4 F 94 15 128/88 98
07/25/25 06:59 07/25/25 11:00 07/25/25 11:00 07/25/25 11:00 07/25/25 11:00
Lab Data
07/25/25 07:44
07/25/25 07:44
Laboratory Results
07/25/25
07:44
PT 12.9
INR 0.96
Diagnostic Testing:
Physical Exam
-
HEENT: Normocephalic, Anicteric and Moist Mucous Membranes
Cardiovascular: S1/S2 and Regular Rhythm
Respiratory: Clear and Non-Labored Respirations
GI: Soft, Non Distended and Non Tender
Neurology: Awake, Alert, Oriented and No Motor Deficits
Skin: Warm, Dry and Good Color
General: Comfortable and Other (NAD)
Assessment
-
49-year-old male with longstanding history of alcohol use disorder presents today with chest pain and tremors. He reports of chronic alcohol use since age of 17 and a longstanding history of insomnia beginning around the same time. He was sober
for approximately 14 months until April of this year when he relapsed and required hospitalization for alcohol binging. Since then he reports another brief episode of sobriety lasting for about 1.5 months before resuming heavy alcohol use.
Over the past week the patient has experienced worsening nausea, vomiting, diarrhea associated with alcohol intake. His last alcoholic drink was 6 PM last night.
Notes that he did not complete rehab after last visit. Admitted to ICU for acute alcohol withdrawal.
Acute alcohol w/d
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
Crohn's disease
Ano-rectal fistula surgeries x 4
Right Hydrocelectomy 11/2018
Acquired amegakaryocytic thrombocytopenia
Alcohol dependence with withdrawal with complication
HTN
Anxiety
Plan
No current signs of metabolic encephalopathy or MS changes/following commands
Psychiatric history noted above including anxiety/insomnia--can make outpatient FU appt for insomnia
Denies pain at this time.
Pain/sedation: MSAS, phenobarb, does not likely need precedex
No tremors, calm
Psych eval noted on past
RASS goals: 0
Hemodynamically stable, not requiring pressors.
Monitor on telemetry
Stable on RA
Prior history of lung disease: none
Supplemental O2 as indicated to maintain sats > 89%
CXR/CT reviewed indicating NAD
Advance diet
Aspiration precautions, HOB > 30 degrees
GI prophylaxis if indicated
Creat at baseline, no history of renal disease
Void trials
Follow urine output, critical I/Os
Replete electrolytes as needed
No signs/symptoms suspicious for infectious etiology at this time
Observe off antibiotics for now
Follow fever trend, WBC count
CBC stable, no signs of bleeding or coagulopathy.
DVT prophylaxis as assessed based on risk, including mechanical SCDs
Can transfuse if indicated for Hb <7, plt < 10
No prior h/o diabetes or thyroid disease
Monitor accuchecks PRN/SS coverage if needed
If doing well in 24 hours, can downgrade.
Diagnostic Data
Chest X-Ray: 05/12/25-Unremarkable exam
CT Scan:
Echo:
PFT's:
Reports and relevant images were personally reviewed.
Critical Care time 50 mins -- The patient is admitted for acute critical illness for the treatment of vital organ failure and/or prevention of further life-threatening conditions. Total care includes time spent in review of history, physical exam,
medications, hemodynamic/ventilator parameters, laboratory data, imaging and discussion with house staff, pharmacy, respiratory therapy, cap jewel plate assembler, and nursing.
[2025-07-25 11:40] LABS: Urine Character Clear (Clear)
[2025-07-25 11:56] LABS: Glucose - Point of Care 98 mg/dl (70-99)
[2025-07-25 11:57] LABS: Urine Red Blood Cell 0-2 /HPF (0-2); Urine White Cell None Seen /HPF (0-5)
[2025-07-25] MEDS: PHENOBARBITAL 104 MG IV (12:04)
[2025-07-25] MEDS: FOLVITE 50.2 MG IV (12:30)
[2025-07-25 12:54] LABS: TSH 2.44 uIU/ml (0.47-4.68)
--- NOTE | 2025-07-25 13:11 | PTCARENOTE ---
Rec'd pt at approx 1115 from ED, pt stood to transfer to bed, gait slightly unsteady. Monitor SR. Lungs CTA. +BS, abd soft/nt. Pt educated on plan of care and to report any S/S of withdraw, pt verbalized understanding. Initial IV bolus of Phenobarb
given. MSAS 2-4, pt calm and cooperative.
[2025-07-25 13:14] LABS: Vitamin B12 509 pg/ml (239-931)
[2025-07-25] MEDS: PHENOBARBITAL 97.5 MG IV ×2 (15:56→21:07)
[2025-07-25] MEDS: LOVENOX 40 MG SC (17:27)
--- NOTE | 2025-07-25 18:25 | PTCARENOTE ---
Pt remains calm and cooperative. Ambulating to the bathroom with standby assist. Diet advanced to regular. MSAS ~1. Pt's mother in to visit.
[2025-07-25] MEDS: ATIVAN 1 MG IV (20:10)
--- NOTE | 2025-07-25 23:53 | PTCARENOTE ---
One time Ativan dose given for insomnia, not related to MSAS.
No changes in assessment. Remains MSAS 0-2. AO4.
[2025-07-26] VITALS (7 sets, daily range): BP systolic 106–142; BP diastolic 70–108; BMI 26.1
--- NOTE | 2025-07-26 03:00 | PTCARENOTE ---
No change in assessment.
[2025-07-26 03:37] LABS: Hematocrit 38.1 % (39.0-52.0); Hemoglobin 13.4 g/dL (13.0-18.0); Mean Corp Hgb Conc. 35.2 g/dL (33.0-37.0); Mean Corpuscular Volume 90.3 fL (80.0-94.0); Nucleated Red Blood Cells % 0 % (-); Platelet Count 230 10^3/uL (130-400); Red Cell Dist. Width 13.4 % (11.5-14.5)
[2025-07-26 04:02] LABS: ALT (SGPT) 19 U/L (0-50); AST (SGOT) 23 U/L (17-59); Albumin 3.8 g/dl (3.5-5.0); Alkaline Phosphatase 41 U/L (38-126); Blood Urea Nitrogen 9 mg/dl (9-20); Calcium 8.7 mg/dl (8.4-10.2); Carbon Dioxide 22 mmol/L (22-30); Chloride 109 mmol/L (98-107); Estimated Creatinine Clearance > 125 ml/min; Glucose 96 mg/dl (70-99); Magnesium 1.9 mg/dl (1.6-2.3); Potassium 4.1 mmol/L (3.5-5.1); Sodium 136 mmol/L (135-145); Total Protein 6.7 g/dl (6.3-8.2); eGFR > 60.00
[2025-07-26] MEDS: NSS 1000 IV (05:48)
[2025-07-26] MEDS: PHENOBARBITAL 97.5 MG IV (07:11)
[2025-07-26] MEDS: ATIVAN 1 MG PO (07:12)
[2025-07-26] MEDS: THIAMINE INJECTION 200 MG IV (07:12)
[2025-07-26] MEDS: FOLVITE 50.2 MG IV (07:17)
--- NOTE | 2025-07-26 07:37 | W.PN.INTV ---
Today's Communication / Plan
Recommendations
Doing well, on MSAS, not on gtts
Ambulating in room, tolerating diet
Stop IVFs
Will arrange OP FU for sleep, info in chart
Can transfer to floors today per team, we will sign off upon transfer
Assessment
-
49-year-old male with longstanding history of alcohol use disorder presents today with chest pain and tremors. He reports of chronic alcohol use since age of 17 and a longstanding history of insomnia beginning around the same time. He was sober
for approximately 14 months until April of this year when he relapsed and required hospitalization for alcohol binging. Since then he reports another brief episode of sobriety lasting for about 1.5 months before resuming heavy alcohol use.
Over the past week the patient has experienced worsening nausea, vomiting, diarrhea associated with alcohol intake. His last alcoholic drink was 6 PM last night.
Notes that he did not complete rehab after last visit. Admitted to ICU for acute alcohol withdrawal.
Acute alcohol w/d
Insomnia
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
Crohn's disease
Ano-rectal fistula surgeries x 4
Right Hydrocelectomy 11/2018
Acquired amegakaryocytic thrombocytopenia
Alcohol dependence with withdrawal with complication
HTN
Anxiety
Plan
No current signs of metabolic encephalopathy or MS changes/following commands
Psychiatric history noted above including anxiety/insomnia--can make outpatient FU appt for insomnia
Denies pain at this time.
Pain/sedation: MSAS, phenobarb, not on gtts
No tremors, calm
Psych eval noted on past
RASS goals: 0
Hemodynamically stable, not requiring pressors.
Monitor on telemetry
Stable on RA
Prior history of lung disease: none
Supplemental O2 as indicated to maintain sats > 89%
CXR/CT reviewed indicating NAD
Advance diet
Aspiration precautions, HOB > 30 degrees
GI prophylaxis if indicated
Creat at baseline, no history of renal disease
Void trials
Follow urine output, critical I/Os
Replete electrolytes as needed
No signs/symptoms suspicious for infectious etiology at this time
Observe off antibiotics for now
Follow fever trend, WBC count
CBC stable, no signs of bleeding or coagulopathy.
DVT prophylaxis as assessed based on risk, including mechanical SCDs
Can transfuse if indicated for Hb <7, plt < 10
No prior h/o diabetes or thyroid disease
Monitor accuchecks PRN/SS coverage if needed
Discharge planning
Diagnostic Data
Chest X-Ray: 05/12/25-Unremarkable exam
CT Scan:
Echo:
PFT's:
Reports and relevant images were personally reviewed.
Critical Care time 31 mins -- The patient is admitted for acute critical illness for the treatment of vital organ failure and/or prevention of further life-threatening conditions. Total care includes time spent in review of history, physical exam,
medications, hemodynamic/ventilator parameters, laboratory data, imaging and discussion with house staff, pharmacy, respiratory therapy, child care associate teacher, and nursing.
Subjective Dataa
Subjective Data
Date of Service:
Date of Service: July 26, 2025
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
Subjective:
No new events ON, tolerating diet
Not on pressors
Objective Data
Data Reviewed
Vital Signs / I&O / Oxygen:
Vital Signs
Temp Pulse Resp BP Pulse Ox
98.4 F 73 15 142/108 99
07/26/25 04:00 07/26/25 06:00 07/26/25 05:01 07/26/25 05:01 07/26/25 02:41
Intake and Output
07/25/25 07/26/25 07/27/25
06:59 06:59 06:59
Intake Total 2300 / 2300
Balance 2300 / 2300
SaO2 99
Physical Exam
General: Comfortable and Other (NAD)
HEENT: Normocephalic, Anicteric and Moist Mucous Membranes
Cardiovascular: S1-S2 and Regular Rhythm
Respiratory: Clear and Non-Labored Respirations
GI: Soft, Non Distended and Non Tender
Neurology: Awake, Alert, Oriented and No Motor Deficits
Skin: Warm, Dry and Good Color
Labs/Micro/Reports
Lab Data
07/26/25 03:23
07/26/25 03:23
Laboratory Results
07/25/25
07:44
PT 12.9
INR 0.96
[2025-07-26] MEDS: MAGNESIUM SULFATE 50 IV (07:55)
--- NOTE | 2025-07-26 09:21 | W.PN.HOSP.TC ---
Today's Communication/Plan
-
MSA protocol
Assessment / Plan
Assessment / Plan
Physical exam:
General: Well Developed, Well Nourished and No Apparent Distress
HEENT: Normocephalic, Atraumatic and Moist Mucous Membranes
Respiratory: Clear to Auscultation; Negative Wheezes, Rales or Rhonchi
Cardiac: Regular Rhythm and S1/S2
GI: Soft, Nontender and Nondistended
Musculoskeletal: No Clubbing, No Cyanosis and No Edema
Neuro: Awake, Alert and Oriented, no neurological deficit
Psych: Calm
A/P:
Severe alcohol withdrawal:
Continue MSA protocol
Continue phenobarbital taper
Continue thiamine and folate
Can transfer out of ICU today
Elevated blood pressure without formal diagnosis of hypertension although he tells me that he did have hypertension in the past:
Likely related to withdrawal
Continue to monitor
History of chron's:
He is not very clear if he was formally diagnosed with chronic but he is not on any maintenance medications.
I was planning to arrange outpatient GI referral
Hypomagnesemia:
Replete and trend
DVT prophylaxis:
Lovenox SQ
CODE STATUS:
Full code
Total time spent on today's encounter was 36 minutes which included time spent in counseling the patient/family regarding diagnosis and treatment plan as listed above, goals of care, and symptom management. Case was discussed with nursing staff,
specialists, and care coordinators/case management. All labs and imaging personally reviewed by me. Remainder the time spent in detailed review of previous records, lab data, imaging, and other medical provider documentation.
Anticipated Discharge: Within 24 hours
Subjective/Interval History
-
Date of Service: July 26, 2025
Seen this morning. Did not voice any complaints.
Objective Data
-
Labs:
Laboratory Results
07/26/25
03:23
WBC 4.6 L
Hgb 13.4
Hct 38.1 L
Plt Count 230
Sodium 136
Potassium 4.1
Chloride 109 H
Carbon Dioxide 22
BUN 9
Creatinine 0.7
Glucose 96
Calcium 8.7
Total Bilirubin 1.0
AST 23
ALT 19
Alkaline Phosphatase 41
Vital Signs:
Vital Signs
Temp Pulse Resp BP Pulse Ox
98.2 F 73 15 142/108 99
07/26/25 08:00 07/26/25 06:00 07/26/25 05:01 07/26/25 05:01 07/26/25 02:41
I&O
07/25/25 07/26/25 07/27/25
06:59 06:59 06:59
Intake Total 2300 / 2300
Balance 2300 / 2300
--- NOTE | 2025-07-26 10:10 | CM ---
Still in ICU [facility] referral done CM continue to follow up for any dcp needs
--- NOTE | 2025-07-26 12:08 | PTCARENOTE ---
Rec'd pt at 0700. Pt AAOx3, anxious, pt had removed telemetry wires. Pt instructed on importance of keeping monitor wires on. Pt apologetic and verbalized understanding. Pt stated that he felt anxious and would like some medication. Tele reapplied
and PRN Ativan given with +results. SR on monitor. Lungs CTA. +BS. Ambulating to BR. Downgraded to tele LOC.
--- NOTE | 2025-07-26 12:46 | PTCARENOTE ---
Pt rang his call leggett, upon coming in the room pt stated he was leaving. Explained to pt that he was not ready for discharge yet and that if he wanted to leave it would be against medical advice. Pt verbalized understanding and stated he was still
going home. Dr. Bueno notified. Within a few minutes pt's mother in to visit, pt and mother appeared to have verbal disagreement in room. Mother came out to nurses station tearful and stated she wanted him to stay and get help but he said she was
either driving him home or he would walk. Dr. Bueno in to speak with pt, pt verbally aggressive towards MD and refused to sign AMA form after it was discussed with pt by MD. IV's and tele monitor removed by RN. Pt left hospital with mom at approx
1245.
--- NOTE | 2025-07-26 12:53 | W.DCSUMMARY ---
Discharge Summary
Discharge Data
Date of Admission: 07/25/25
Date of Discharge: 07/26/25
Total time spent discharging patient (in min): 35 minutes
-
Pending Results: No
Hospital Course
Patient 49 years old male with history of alcohol abuse came into the hospital with severe alcohol withdrawal. Patient was started on MSA protocol, thiamine, folate. Initially admitted to ICU given his high risk of complications. Patient did well
first 24 hours but he required more management inpatient. Patient wanted to leave AMA. I came and explained to him risks including but not limited to worsening alcohol withdrawal, hypertensive emergency, cardiac arrhythmias, and . Patient
became very upset and said he would not sign the papers and he left.
Discharge duration: 35 minutes
Discharge Plan
-
Patient Disposition: Against Medical Advice
Referrals:
Goldie Jimenez, DO [Active, Pulmonary Medicine] - in six weeks
Referral Note: SLEEP-INSOMNIA
UNKNOWN - PT DOES,NOT KNOW [Family Provider]
Prescriptions:
No Action
naltrexone 50 mg Tablet
50 mg PO DAILY Qty: 30 0RF
pantoprazole 40 mg Tablet,Delayed Release (Dr/Ec)
40 mg PO DAILY Qty: 30 0RF
folic acid 1 mg Tablet
1 mg PO DAILY Qty: 30 0RF
phenobarbital 32.4 mg Tablet
32.4 mg PO BID Qty: 3 0RF
hydroxyzine HCl 50 mg tablet
50 mg PO HS Qty: 30 0RF
Discharge Date and Time
Print Language: BARBADIAN
== END 2025-07-26 13:11 | disposition left against medical advice (07) | DRG 894 ==
LOC: ICU 10:18
PROVIDERS: Physician Assistant; Student in an Organized Health Care Education/Training Program; ADMITTING PHYSICIAN Hospitalist; CONSULT PHYSICIAN Internal Medicine; EMERGENCY PHYSICIAN Emergency Medicine; FAMILY PHYSICIAN Student in an Organized Health Care Education/Training Program
DX: F10.239 Alcohol dependence with withdrawal, unspecified (principal); K50.913 Crohn's disease, unspecified, with fistula; Z59.10 Inadequate housing, unspecified; K60.30 Anal fistula, unspecified; I10 Essential (primary) hypertension; D69.6 Thrombocytopenia, unspecified; K60.40 Rectal fistula, unspecified; E83.42 Hypomagnesemia; Z59.869 Financial insecurity, unspecified; F41.9 Anxiety disorder, unspecified; Z53.29 Procedure and treatment not carried out because of patient's decision for other reasons; Z59.9 Problem related to housing and economic circumstances, unspecified
CPT/HCPCS: 71045; 80053; 80306; 80307; 81003; 81015; 82077; 82550; 82607; 82805; 82962; 83690; 83735; 84100; 84443; 84484; 85025; 85610; 93005; 96374; 96375; 99285; 99406